=== PATIENT | female | born 1975 | race American Indian/Alaskan Native ===

== ENCOUNTER 2016-09-26 03:35 | Emergency (ER) | payer MEDICAID ==
[2016-09-26 04:50] LABS: Bilirubin,Urine NEG (Negative); Blood,Urine NEG (Negative); Ketones,Urine NEG (Negative); Leukocyte Esterase,Urine NEG (Negative); Mucus,Urine FEW /HPF; Nitrite,Urine NEG (Negative); Protein,Urine <15 mg/dL mg/dL (Negative); Urobilinogen,Urine < 2.0 mg/dL (<2.0)
[2016-09-26 04:55] LABS: Basophils % (Auto) 0.9 % (0.0-1.8); Eosinophils % (Auto) 4.7 % (0.0-4.3); Hematocrit 35.2 % (30.3-42.9); Hemoglobin 10.9 gm/dl (10.1-14.3); Mean Corpuscular HGB Conc 31 % (30-34); Mean Corpuscular Hemoglobin 22 pg (28-32); Mean Corpuscular Volume 70 fl (79-97); Platelet Count 304 K/mm3 (140-440); Red Blood Count 5.01 M/mm3 (3.65-5.03); Red Cell Distribution Width 15.5 % (13.2-15.2); White Blood Count 8.6 K/mm3 (4.5-11.0)
[2016-09-26 05:14] LABS: BUN/Creatinine Ratio 15.71; Blood Urea Nitrogen 11 mg/dL (7-17); Calcium 8.7 mg/dL (8.4-10.2); Carbon Dioxide 23 mmol/L (22-30); Glucose 129 mg/dL (65-100)
[2016-09-26 05:15] LABS: Anion Gap 18 mmol/L; Chloride 101.3 mmol/L (98-107); Potassium 3.6 mmol/L (3.6-5.0); Sodium 139 mmol/L (137-145)
[2016-09-26] MEDS ORDERED: TENORMIN PO ONE (11:59)
[2016-09-26] MEDS ORDERED: ATIVAN PO ONE (11:59)
[2016-09-26] MEDS ORDERED: PROVENTIL IH ONE (11:59)
--- NOTE | 2016-09-26 12:19 | Emergency Department Report ---
ED Chest Pain HPI - General Chief Complaint: Chest Pain Stated Complaint: CHEST PAIN Time Seen by Provider: 09/26/16 11:36 Source: patient Mode of arrival: Ambulatory Limitations: No Limitations - History of Present Illness Initial Comments: 41-year-old female presents to the emergency department complaining of chest pain. Patient states that at approximately midnight she began having tingling in her left arm with associated headache, shortness of breath, and tightness in the center of her chest. Chest pain did not radiate. She denies diaphoresis, dizziness, nausea, or vomiting. She states that she has been out of her blood pressure medication for 3 days. She states that she took her blood pressure at home and noted that it was high. Patient states she began to become actually worried about this and came to the emergency department. At this time, patient reports feeling better. She is now complaining of mild wheezing with a nonproductive cough. There are no other complaints. MD Complaint: chest pain -: Sudden, During the night Time: 00:00 Onset: during rest Pain Location: substernal Pain Radiation: none Severity: mild Severity scale (0 -10): 4 Quality: tightness Consistency: constant, now resolved Improves With: nothing Worsens With: nothing re: dyspnea. denies: nausea, vomting, diaphoresis Treatments Prior to Arrival: none Aspirin use within the Past 7 Days: (0) No - Related Data Previous Rx's Medication Instructions Recorded Last Taken Type Atenolol [Tenormin] 25 mg PO DAILY #30 tab 09/26/16 Unknown Rx LORazepam [Ativan] 0.5 mg PO Q6H PRN #20 tablet 09/26/16 Unknown Rx Allergies Allergy/AdvReac Type Severity Reaction Status Date / Time No Known Allergies Allergy Unverified 02/28/13 17:12 Heart Score - HEART Score History: Slightly suspicious EKG: Normal Age: < 45 Risk factors: 1-2 risk factors Troponin: < normal limit HEART Score: 1 ED Review of Systems ROS: Stated complaint: CHEST PAIN Other details as noted in HPI Comment: All other systems reviewed and negative Respiratory: cough, shortness of breath, wheezing Cardiovascular: chest pain Neurological: headache, paresthesias ED Past Medical Hx - Past Medical History Previous Medical History?: Yes Hx Hypertension: Yes Hx Asthma: Yes Additional medical history: Anxiety - Surgical History Past Surgical History?: Yes Additional Surgical History: tubal ligation - Family History Family history: no significant - Social History Smoking Status: Never Smoker Substance Use Type: None - Medications Home Medications: Home Medications Medication Instructions Recorded Confirmed Last Taken Type Atenolol [Tenormin] 25 mg PO DAILY #30 tab 09/26/16 Unknown Rx LORazepam [Ativan] 0.5 mg PO Q6H PRN #20 tablet 09/26/16 Unknown Rx ED Physical Exam - General Limitations: No Limitations General appearance: alert, in no apparent distress - Head Head exam: Present: atraumatic, normocephalic - Eye Eye exam: Present: normal appearance, PERRL, EOMI - ENT ENT exam: Present: normal exam, normal orophraynx, mucous membranes moist - Neck Neck exam: Present: normal inspection, full ROM. Absent: tenderness - Respiratory Respiratory exam: Present: wheezes (bilateral posterior and expiratory). Absent : respiratory distress, chest wall tenderness - Cardiovascular Cardiovascular Exam: Present: regular rate (heart rate 84 on exam), normal rhythm, normal heart sounds - GI/Abdominal GI/Abdominal exam: Present: soft, normal bowel sounds. Absent: distended, tenderness - Extremities Exam Extremities exam: Present: normal inspection, full ROM. Absent: tenderness - Back Exam Back exam: Present: normal inspection, full ROM. Absent: tenderness - Neurological Exam Neurological exam: Present: alert, oriented X3. Absent: motor sensory deficit - Skin Skin exam: Present: warm, dry, intact ED Course Vital Signs 09/26/16 09/26/16 09/26/16 03:55 11:34 11:40 Temperature 97.7 F Pulse Rate 103 H 80 Respiratory 20 17 Rate Blood Pressure 167/110 166/95 166/95 Blood Pressure [Left] O2 Sat by Pulse 100 100 Oximetry 09/26/16 09/26/16 09/26/16 11:50 12:11 12:23 Temperature 98.7 F Pulse Rate 80 82 Respiratory 23 20 Rate Blood Pressure 164/88 145/87 Blood Pressure 125/76 [Left] O2 Sat by Pulse 99 99 Oximetry LUISA score - Luisa Score Age > 65: (0) No Aspirin use within the Past 7 Days: (0) No 3 or more CAD Risk Factors: (0) No 2 or more Angina events in past 24 hrs: (0) No Known CAD with more than 50% Stenosis: (0) No Elevated Cardiac Markers: (0) No ST Deviation Greater than 0.5mm: (0) No LUISA Score: 0 ED Medical Decision Making - Lab Data Result diagrams: 09/26/16 04:17 09/26/16 04:17 - EKG Data -: EKG Interpreted by Me EKG shows normal: sinus rhythm, axis, intervals, QRS complexes, ST-T waves Rate: tachycardia - EKG Data When compared to previous EKG there are: previous EKG unavailable Interpretation: normal EKG - Medical Decision Making Lab results reviewed and discussed with the patient. Patient reports feeling much better following nebulizer treatment. Her blood pressure has decreased with medication. Patient will be discharged home at this time to follow up with her primary care physician. - Differential Diagnosis atypical chest pain, hypertension, anxiety, asthma exacerbation Critical care attestation.: If time is entered above; I have spent that time in minutes in the direct care of this critically ill patient, excluding procedure time. ED Disposition Clinical Impression: Non-cardiac chest pain, Essential hypertension Disposition: DC- TO HOME OR SELFCARE Is pt being admited?: No Condition: Stable Instructions: Chest Pain (ED), Hypertension (ED) Prescriptions: Atenolol [Tenormin] 25 mg PO DAILY #30 tab LORazepam [Ativan] 0.5 mg PO Q6H PRN #20 tablet PRN Reason: Anxiety Referrals: PRIMARY CARE, [Primary Care Provider] - 3-5 Days Time of Disposition: 13:14
[2016-09-26 14:07] VITALS: BP 142/81
== END 2016-09-26 13:00 | disposition home or self-care (01) ==
LOC: ED 03:35
DX: R07.89 Other chest pain (principal); I10 Essential (primary) hypertension; J45.909 Unspecified asthma, uncomplicated; F41.9 Anxiety disorder, unspecified
CPT/HCPCS: 36415; 80048; 81001; 84484; 84703; 85025; 93005; 93010; 94640

== ENCOUNTER 2017-12-07 13:01 | Emergency (ER) | payer MEDICAID ==
[2017-12-07 13:09] VITALS: BP 154/78
--- NOTE | 2017-12-07 14:36 | Emergency Department Report ---
ED Palpitations HPI - General Chief Complaint: Arrhythmia/Palpitations Stated Complaint: IRREGULAR HEART BEAT Time Seen by Provider: 12/07/17 14:25 Source: patient Mode of arrival: Ambulatory Limitations: No Limitations - History of Present Illness Initial Comments: Patient is 42 years old female with history of asthma and hypertension. Patient presented to the ER stating that she had multiple episodes of heart racing last night. She denied any chest pain, shortness of breath, fever or cough. Patient stated that she had this history before and she was diagnosed as an anxiety. Patient currently denying any symptoms. MD Complaint: rapid heart beat, "heart racing" -: Sudden, Last night Context: occured during rest Associated Symptoms: denies other symptoms - Related Data Previous Rx's Medication Instructions Recorded Last Taken Type Atenolol [Tenormin] 25 mg PO DAILY #30 tab 09/26/16 Unknown Rx LORazepam [Ativan] 0.5 mg PO Q6H PRN #20 tablet 09/26/16 Unknown Rx Allergies Allergy/AdvReac Type Severity Reaction Status Date / Time No Known Allergies Allergy Verified 12/07/17 13:09 ED Review of Systems ROS: Stated complaint: IRREGULAR HEART BEAT Other details as noted in HPI Comment: All other systems reviewed and negative Respiratory: denies: cough, shortness of breath Cardiovascular: palpitations. denies: chest pain Gastrointestinal: denies: abdominal pain, nausea ED Past Medical Hx - Past Medical History Hx Hypertension: Yes Hx Asthma: Yes Additional medical history: Anxiety - Surgical History Additional Surgical History: tubal ligation - Social History Smoking Status: Never Smoker Substance Use Type: Alcohol - Medications Home Medications: Home Medications Medication Instructions Recorded Confirmed Last Taken Type Atenolol [Tenormin] 25 mg PO DAILY #30 tab 09/26/16 Unknown Rx LORazepam [Ativan] 0.5 mg PO Q6H PRN #20 tablet 09/26/16 Unknown Rx ED Physical Exam - General Limitations: No Limitations General appearance: alert, in no apparent distress - Head Head exam: Present: atraumatic, normocephalic, normal inspection - Eye Eye exam: Present: normal appearance - ENT ENT exam: Present: normal exam, normal orophraynx, mucous membranes moist - Neck Neck exam: Present: normal inspection, full ROM. Absent: tenderness, meningismus, lymphadenopathy, thyromegaly - Respiratory Respiratory exam: Present: normal lung sounds bilaterally. Absent: respiratory distress, wheezes, rales, rhonchi, chest wall tenderness, accessory muscle use, decreased breath sounds, prolonged expiratory - Cardiovascular Cardiovascular Exam: Present: regular rate, normal rhythm, normal heart sounds - GI/Abdominal GI/Abdominal exam: Present: soft, normal bowel sounds. Absent: distended, tenderness, guarding, rebound, rigid, organomegaly, mass, bruit, pulsatile mass , hernia - Extremities Exam Extremities exam: Present: normal inspection, full ROM, normal capillary refill - Back Exam Back exam: Present: normal inspection, full ROM. Absent: tenderness, CVA tenderness (R), CVA tenderness (L), muscle spasm, paraspinal tenderness, vertebral tenderness - Neurological Exam Neurological exam: Present: alert, oriented X3, CN II-XII intact, normal gait, reflexes normal - Skin Skin exam: Present: warm, intact, normal color ED Course Vital Signs 12/07/17 13:06 Temperature 99.2 F Pulse Rate 88 Respiratory 15 Rate Blood Pressure 154/78 O2 Sat by Pulse 99 Oximetry ED Medical Decision Making - Lab Data Result diagrams: 12/07/17 15:31 12/07/17 15:31 - EKG Data -: EKG Interpreted by Al EKG shows normal: sinus rhythm Rate: normal - EKG Data Interpretation: no acute changes Critical care attestation.: If time is entered above; I have spent that time in minutes in the direct care of this critically ill patient, excluding procedure time. ED Disposition Clinical Impression: Palpitation Disposition: DC-01 TO HOME OR SELFCARE Is pt being admited?: No Condition: Stable Instructions: Palpitations (ED) Referrals: PRIMARY CARE, [Referring] - 3-5 Days
[2017-12-07 15:50] LABS: Basophils # (Auto) 0.1 K/mm3 (0.0-0.1); Eosinophils # (Auto) 0.3 K/mm3 (0.0-0.4); Hematocrit 36.7 % (30.3-42.9); Hemoglobin 11.5 gm/dl (10.1-14.3); Lymphocytes # (Auto) 2.4 K/mm3 (1.2-5.4); Lymphocytes % (Auto) 37.1 % (13.4-35.0); Mean Corpuscular HGB Conc 31 % (30-34); Mean Corpuscular Volume 72 fl (79-97); Monocytes # (Auto) 0.5 K/mm3 (0.0-0.8); Monocytes % (Auto) 7.3 % (0.0-7.3); Platelet Count 256 K/mm3 (140-440); Red Blood Count 5.12 M/mm3 (3.65-5.03)
[2017-12-07 15:52] LABS: Mean Corpuscular Hemoglobin 23 pg (28-32)
[2017-12-07 15:54] LABS: Bilirubin,Urine NEG (Negative); Blood,Urine NEG (Negative); Color,Urine Yellow (Yellow); Hyaline Casts,Urine 1 /LPF; Mucus,Urine FEW /HPF; WBC,Urine < 1.0 /HPF (0.0-6.0)
[2017-12-07 16:01] LABS: Amphetamine Screen,Urine PRESUMPTIVE NEGATIVE; Benzodiazepines Screen,Urine PRESUMPTIVE NEGATIVE; Cannabinoid Screen,Urine PRESUMPTIVE NEGATIVE; Cocaine Screen,Urine PRESUMPTIVE NEGATIVE; Methadone Screen,Urine PRESUMPTIVE NEGATIVE; Opiate Screen,Urine PRESUMPTIVE NEGATIVE
[2017-12-07 16:08] LABS: Alanine Aminotransferase 21 units/L (7-56); Albumin 4.2 g/dL (3.9-5); BUN/Creatinine Ratio 8; Blood Urea Nitrogen 4 mg/dL (7-17); Calcium 8.9 mg/dL (8.4-10.2); Hemolysis Index 27
== END 2017-12-07 16:44 | disposition home or self-care (01) ==
LOC: ED 13:01
DX: R00.2 Palpitations (principal); I10 Essential (primary) hypertension; J45.909 Unspecified asthma, uncomplicated; F41.9 Anxiety disorder, unspecified; Z98.51 Tubal ligation status
CPT/HCPCS: 36415; 80053; 80307; 81001; 84443; 84484; 85025; 93005; 93010; 99283

== ENCOUNTER 2018-06-06 15:52 | Emergency (ER) | payer MEDICAID ==
[2018-06-06 16:02] VITALS: BP 136/77
--- NOTE | 2018-06-06 17:58 | Emergency Department Report ---
Blank Doc - Documentation Documentation: This is a 43 y.o. female that presents with dizziness and palpitations since y . Patient reports rapid palpitations that are intermittent and the room feel like its spinning. PMH of anxiety, sleep apnea, asthma, and HTN. Ordered: labs and EKG Fast track for further evaluation.
[2018-06-06 18:37] LABS: Basophils # (Auto) 0.1 K/mm3 (0.0-0.1); Eosinophils # (Auto) 0.4 K/mm3 (0.0-0.4); Eosinophils % (Auto) 4.5 % (0.0-4.3); Hematocrit 37.2 % (30.3-42.9); Hemoglobin 11.9 gm/dl (10.1-14.3); Lymphocytes # (Auto) 2.4 K/mm3 (1.2-5.4); Lymphocytes % (Auto) 30.7 % (13.4-35.0); Mean Corpuscular HGB Conc 32 % (30-34); Mean Corpuscular Volume 72 fl (79-97); Monocytes # (Auto) 0.3 K/mm3 (0.0-0.8); Monocytes % (Auto) 4.4 % (0.0-7.3); Platelet Count 309 K/mm3 (140-440); Red Blood Count 5.18 M/mm3 (3.65-5.03); Red Cell Distribution Width 15.2 % (13.2-15.2)
[2018-06-06 18:54] LABS: Alanine Aminotransferase 15 units/L (7-56); Albumin 4.3 g/dL (3.9-5); BUN/Creatinine Ratio 14; Blood Urea Nitrogen 7 mg/dL (7-17); Calcium 9.1 mg/dL (8.4-10.2); Hemolysis Index 5
[2018-06-06 20:28] LABS: Bilirubin,Urine NEG (Negative); Blood,Urine MOD (Negative); Color,Urine Yellow (Yellow); Mucus,Urine FEW /HPF; Protein,Urine <15 mg/dL mg/dL (Negative); Urobilinogen,Urine < 2.0 mg/dL (<2.0)
--- NOTE | 2018-06-06 20:53 | Emergency Department Report ---
<CECI GARCIA - Last Filed: 06/06/18 21:48> ED Dizziness HPI - General Chief Complaint: Dizziness Stated Complaint: DIZZY/RAPID HEART RATE Time Seen by Provider: 06/06/18 17:54 Source: patient Mode of arrival: Ambulatory Limitations: No Limitations - History of Present Illness Initial Comments: This is a 43 y.o. female with hx of asthma, and HTN. that presents with dizziness and palpitations since yesterday. Patient reports rapid palpitations that are intermittent and the room feel like its spinning. PMH of anxiety, sleep apnea, MD Complaint: dizziness Onset/Timin -: days(s) Timing: gradual onset Description: "room spinning" History of Same: Yes History of Trauma: No Severity: moderate Improves With: rest Worsens With: movement, position Associated Symptoms: other (palpitation anxiety ). denies: chest pain, confusion, cough, diaphoresis, fever/chills, malaise, seizure, shortness of breath, syncope, weakness - Related Data Previous Rx's Medication Instructions Recorded Last Taken Type LORazepam [Ativan] 0.5 mg PO Q6H PRN #20 tablet 09/26/16 Unknown Rx RX: Atenolol [Tenormin] 25 mg PO DAILY #30 tab 09/26/16 Unknown Rx Nitrofurantoin Monohyd/M-Cryst 100 mg PO BID 7 Days #14 capsule 06/06/18 Unknown Rx [Macrobid 100 mg Capsule] RX: Ibuprofen 800 mg PO TID PRN #30 tablet 06/06/18 Unknown Rx diphenhydrAMINE [Benadryl CAP] 25 mg PO Q8HR PRN #30 capsule 06/06/18 Unknown Rx Allergies Allergy/AdvReac Type Severity Reaction Status Date / Time No Known Allergies Allergy Verified 06/06/18 15:55 ED Review of Systems Constitutional: denies: chills, fever Eyes: denies: eye pain, eye discharge, vision change ENT: denies: ear pain, throat pain Cardiovascular: palpitations. denies: dyspnea on exertion, edema, syncope, paroxysmal nocturnal dyspnea Endocrine: no symptoms reported. denies: excessive sweating, flushing Gastrointestinal: denies: abdominal pain, nausea, vomiting, diarrhea, hematemesis Genitourinary: frequency. denies: urgency, dysuria, hematuria, discharge, abnormal menses, dyspareunia Musculoskeletal: denies: back pain, joint swelling, arthralgia, myalgia Skin: denies: rash, lesions Neurological: denies: headache, weakness, numbness, paresthesias, confusion, abnormal gait, vertigo Psychiatric: as per HPI, anxiety Hematological/Lymphatic: denies: easy bleeding, easy bruising ED Past Medical Hx - Past Medical History Previous Medical History?: Yes Hx Hypertension: Yes Hx Asthma: Yes Additional medical history: Anxiety - Surgical History Past Surgical History?: Yes Hx Breast Surgery: (breast reduction) Additional Surgical History: tubal ligation - Social History Smoking Status: Never Smoker Substance Use Type: Alcohol - Medications Home Medications: Home Medications Medication Instructions Recorded Confirmed Last Taken Type LORazepam [Ativan] 0.5 mg PO Q6H PRN #20 tablet 09/26/16 Unknown Rx RX: Atenolol [Tenormin] 25 mg PO DAILY #30 tab 09/26/16 Unknown Rx Nitrofurantoin Monohyd/M-Cryst 100 mg PO BID 7 Days #14 capsule 06/06/18 Unknown Rx [Macrobid 100 mg Capsule] RX: Ibuprofen 800 mg PO TID PRN #30 tablet 06/06/18 Unknown Rx diphenhydrAMINE [Benadryl CAP] 25 mg PO Q8HR PRN #30 capsule 06/06/18 Unknown Rx ED Physical Exam - General Limitations: No Limitations General appearance: alert, in no apparent distress - Head Head exam: Present: atraumatic, normocephalic - Eye Eye exam: Present: normal appearance, PERRL, EOMI Pupils: Present: normal accommodation - ENT ENT exam: Present: mucous membranes moist, TM's normal bilaterally, normal external ear exam - Expanded ENT Exam Expanded Ear exam: Present: normal external inspection Mouth exam: Absent: trismus Throat exam: Positive: tonsillar erythema, other (uvula midline no exudate no lesion no stridor no wheezing ). Negative: tonsillomegaly, tonsillar exudate, R peritonsillar mass, L peritonsillar mass - Neck Neck exam: Present: normal inspection, full ROM. Absent: tenderness, meningismus, lymphadenopathy, thyromegaly - Expanded Neck Exam Expanded Neck exam: Absent: tenderness, midline deformity, anterior neck swelling, thyroid mass, carotid bruit, tracheal deviation - Respiratory Respiratory exam: Present: normal lung sounds bilaterally. Absent: respiratory distress, wheezes, stridor, chest wall tenderness - Cardiovascular Cardiovascular Exam: Present: regular rate, normal rhythm, normal heart sounds. Absent: systolic murmur, diastolic murmur, rubs, gallop - GI/Abdominal GI/Abdominal exam: Present: soft, normal bowel sounds. Absent: tenderness, bruit, hernia - Rectal Rectal exam: Present: deferred - External exam: Present: other (exam deferred ) - Extremities Exam Extremities exam: Present: normal inspection, full ROM, normal capillary refill. Absent: tenderness, pedal edema, joint swelling, calf tenderness - Back Exam Back exam: Present: normal inspection, full ROM. Absent: tenderness, CVA tenderness (R), CVA tenderness (L), muscle spasm, paraspinal tenderness, vertebral tenderness, rash noted - Neurological Exam Neurological exam: Present: alert, oriented X3, CN II-XII intact, normal gait, reflexes normal - Expanded Neurological Exam Expanded Neurological exam: Absent: ataxia, tremor Patient oriented to: Present: person, place Speech: Present: fluid speech Cranial nerves: EOM's Intact: Normal, Gag Reflex: Normal, Tongue Deviation: Normal, Nystagmus: Normal, Facial Sensation: Normal Cerebellar function: Finger to Nose: Normal, Heel to [place]: Normal, Romberg: Normal Upper motor neuron: [place] Neglect: Normal, Pronator Drift: Normal, Babinski Sign: Normal, Sensory Extinction: Normal Sensory exam: Upper Extremity Light Touch: Normal, Upper Extremity Pin Prick: Normal, Upper Extremity Temperature: Normal, UE 2 Point Discrimination: Normal, Lower Extremity Light Touch: Normal, Lower Extremity Pin Prick: Normal, Lower Extremity Temperature: Normal, LE 2 Point Discrimination: Normal Motor strength exam: RUE: 5, LUE: 5, RLE: 5, LLE: 5 Best Eye Response ([place]): (4) open spontaneously Best Motor Response ([place]): (6) obeys commands Best Verbal Response (Damaris): (5) oriented Damaris Total: 15 - Psychiatric Psychiatric exam: Present: normal affect, normal mood - Skin Skin exam: Present: warm, dry, intact, normal color. Absent: rash ED Medical Decision Making - Lab Data Result diagrams: 06/06/18 18:07 06/06/18 18:07 Labs 06/06/18 06/06/18 06/06/18 18:07 18:07 18:07 WBC 7.8 RBC 5.18 H Hgb 11.9 Hct 37.2 MCV 72 L MCH 23 L MCHC 32 RDW 15.2 Plt Count 309 Lymph % (Auto) 30.7 [place]olls % (Auto) 4.4 Eos % (Auto) 4.5 H Baso % (Auto) 1.0 Lymph # 2.4 [place]s # 0.3 Eos # 0.4 Baso # 0.1 Seg Neutrophils % 59.4 Seg Neutrophils # 4.6 Sodium 138 Potassium 3.8 Chloride 100.3 Carbon Dioxide 27 Anion Gap 15 BUN 7 Creatinine 0.5 L Estimated GFR > 60 BUN/Creatinine Ratio 14 Glucose 102 H Calcium 9.1 Total Bilirubin 0.60 AST 13 ALT 15 Alkaline Phosphatase 73 Troponin T < 0.010 Total Protein 7.4 Albumin 4.3 Albumin/Globulin Ratio 1.4 TSH 1.250 Urine Color Urine Turbidity Urine pH Ur Specific [place] Urine Protein Urine Glucose (UA) Urine Ketones Urine Blood Urine Nitrite Urine Bilirubin Urine Urobilinogen Ur Leukocyte Esterase Urine WBC (Auto) Urine RBC (Auto) U Epithel Cells (Auto) Urine Mucus 06/06/18 19:55 WBC RBC Hgb Hct MCV MCH MCHC RDW Plt Count Lymph % (Auto) [place] % (Auto) Eos % (Auto) Baso % (Auto) Lymph # [place] # Eos # Baso # Seg Neutrophils % Seg Neutrophils # Sodium Potassium Chloride Carbon Dioxide Anion Gap BUN Creatinine Estimated GFR BUN/Creatinine Ratio Glucose Calcium Total Bilirubin AST ALT Alkaline Phosphatase Troponin T Total Protein Albumin Albumin/Globulin Ratio TSH Urine Color Yellow Urine Turbidity Clear Urine pH 5.0 Ur Specific [place] 1.013 Urine Protein <15 mg/dl Urine Glucose (UA) Neg Urine Ketones Neg Urine Blood Mod Urine Nitrite Neg Urine Bilirubin Neg Urine Urobilinogen < 2.0 Ur Leukocyte Esterase Neg Urine WBC (Auto) 7.0 H Urine RBC (Auto) 2.0 U Epithel Cells (Auto) 2.0 Urine Mucus Few - EKG Data EKG shows normal: sinus rhythm Rate: normal - EKG Data When compared to previous EKG there are: previous EKG unavailable Interpretation: normal EKG (ekg interp ed attending no st elevation , ectopy , Normal EKG ) - Radiology Data Radiology results: report reviewed, image reviewed FINAL REPORT PROCEDURE: XR CHEST ROUTINE 2V TECHNIQUE: PA and lateral chest radiographs were obtained. CPT 98310 HISTORY: palpitations COMPARISON: No prior studies are available for comparison. FINDINGS: Heart: Normal. Mediastinum/Vessels: Normal. Lungs/Pleural space: Normal. Bony thorax: No acute osseous abnormality. Other: IMPRESSION: Normal examination. Transcribed By: [facility] Dictated By: DINA LIPSCOMB Electronically Authenticated By: DINA LIPSCOMB Signed Date/Time: 06/06/182112 DD/ 11 TD/TT: 06/06/182111 - Medical Decision Making CXR: normal no infiltrate no opacities, EKG NSR , Heartscore is 1, for hx of HTN, CXR: normal , EKG: NSR no ST Elevation ENT: mild head congestion clear post nasal drip, ears TMs, clear no sinus pain or swelling , no fever or chills, UA: po for blood, and WBC , Last menses 3 days ago, pt denies vaginal discharge, there is no dizziness or light headedness at this time, pt is ambulatory with steady gait at this time. plan : continue htn medication as scheduled, rx for benadryl prn dizziness, macrobid for urinary frequency, pt will follow up with with her pcp in 2-3 days and return to ed if symptoms worsen, pt verbalized agreement and understanding and agreement with discharge plan. ED Disposition Clinical Impression: Urinary frequency, General medical examination Disposition: TO HOME OR SELFCARE Is pt being admited?: No Does the pt Need Aspirin: No Condition: Good Instructions: Dysuria (ED), Anxiety (ED) Prescriptions: diphenhydrAMINE [Benadryl CAP] 25 mg PO Q8HR PRN #30 capsule PRN Reason: dizziness RX: Ibuprofen 800 mg PO TID PRN #30 tablet PRN Reason: pain Nitrofurantoin Monohyd/M-Cryst [Macrobid 100 mg Capsule] 100 mg PO BID 7 Days #14 capsule Referrals: LAURI GARCIA MD [Primary Care Provider] - 3-5 Days [facility] [Outside] - 3-5 Days Forms: Work/School Release Form(ED) Time of Disposition: 22:13 <JADYN MILAN - Last Filed: 06/07/18 01:57> ED Review of Systems ROS: Stated complaint: DIZZY/RAPID HEART RATE Other details as noted in HPI ED Course Vital Signs 06/06/18 06/06/18 16:01 22:35 Temperature 97.9 F Pulse Rate 92 H 69 Respiratory 15 16 Rate Blood Pressure 136/77 [Right] O2 Sat by Pulse 100 100 Oximetry ED Medical Decision Making - Lab Data Result diagrams: 06/06/18 18:07 06/06/18 18:07 Critical care attestation.: If time is entered above; I have spent that time in minutes in the direct care of this critically ill patient, excluding procedure time. ED Disposition Is pt being admited?: No Does the pt Need Aspirin: No
--- NOTE | 2018-06-06 21:13 | XRay Report ---
FINAL REPORT PROCEDURE: XR CHEST ROUTINE 2V TECHNIQUE: PA and lateral chest radiographs were obtained. CPT 56162 HISTORY: palpitations COMPARISON: No prior studies are available for comparison. FINDINGS: Heart: Normal. Mediastinum/Vessels: Normal. Lungs/Pleural space: Normal. Bony thorax: No acute osseous abnormality. Other: IMPRESSION: Normal examination.
== END 2018-06-06 22:35 | disposition home or self-care (01) ==
LOC: ED 15:52
DX: R35.0 Frequency of micturition (principal); I10 Essential (primary) hypertension; J45.909 Unspecified asthma, uncomplicated; F41.9 Anxiety disorder, unspecified; Z98.51 Tubal ligation status
CPT/HCPCS: 36415; 71046; 80053; 81001; 84443; 84484; 85025; 93005; 93010; 99284

== ENCOUNTER 2018-08-21 06:35 | Emergency (ER) | payer MEDICAID ==
[2018-08-21] MEDS ORDERED: DUONEB *Not for PRN Use IH ONE (07:33)
[2018-08-21] MEDS ORDERED: SOLU-Medrol IV ONE (07:35)
--- NOTE | 2018-08-21 07:38 | Emergency Department Report ---
ED General Adult HPI - General Chief complaint: Dyspnea/Respdistress Stated complaint: LEXI Time Seen by Provider: 08/21/18 07:22 Source: patient, EMS Mode of arrival: Stretcher Limitations: No Limitations - History of Present Illness Initial comments: This is a 43-year-old female and has a history of asthma. She uses Symbicort and albuterol. He states he's been using her inhaler frequently while in 10 times a day. She reports that her heart is racing and does related to her overuse of her inhaler. She states she has recently been to her primary care physician. She is not currently taking steroids. She does describe some vague chest discomfort which does not radiate. It is not pleuritic. She has not been coughing. No fever or chills. He uses CPAP at night. -: Gradual, days(s) Radiation: non-radiation Quality: other (some tightness associated with wheezing) Consistency: intermittent Improves with: none Worsens with: other (wheezing) Associated Symptoms: denies other symptoms, other (heart racing gradual palpitations) Treatments Prior to Arrival: none - Related Data Previous Rx's Medication Instructions Recorded Last Taken Type Atenolol [Tenormin] 25 mg PO DAILY #30 tab 09/26/16 Unknown Rx LORazepam [Ativan] 0.5 mg PO Q6H PRN #20 tablet 09/26/16 Unknown Rx Ibuprofen 800 mg PO TID PRN #30 tablet 06/06/18 Unknown Rx Nitrofurantoin Monohyd/M-Cryst 100 mg PO BID 7 Days #14 capsule 06/06/18 Unknown Rx [Macrobid 100 mg Capsule] diphenhydrAMINE [Benadryl CAP] 25 mg PO Q8HR PRN #30 capsule 06/06/18 Unknown Rx predniSONE [Deltasone] 40 mg PO QDAY #14 tab 08/21/18 Unknown Rx Allergies Allergy/AdvReac Type Severity Reaction Status Date / Time No Known Allergies Allergy Verified 06/06/18 15:55 ED Review of Systems ROS: Stated complaint: LEXI Other details as noted in HPI Constitutional: denies: chills, fever Eyes: denies: eye pain, eye discharge, vision change ENT: denies: ear pain, throat pain Respiratory: shortness of breath, wheezing. denies: cough Cardiovascular: chest pain, palpitations Endocrine: no symptoms reported Gastrointestinal: denies: abdominal pain, nausea, diarrhea Genitourinary: denies: urgency, dysuria, discharge Musculoskeletal: denies: back pain, joint swelling, arthralgia Skin: denies: rash, lesions Neurological: denies: headache, weakness, paresthesias Psychiatric: denies: anxiety, depression Hematological/Lymphatic: denies: easy bleeding, easy bruising ED Past Medical Hx - Past Medical History Previous Medical History?: Yes Hx Hypertension: Yes Hx Asthma: Yes Additional medical history: Anxiety, Sleep Apnea - Surgical History Past Surgical History?: Yes Hx Breast Surgery: (breast reduction) Additional Surgical History: tubal ligation - Social History Smoking Status: Former Smoker Substance Use Type: Alcohol - Medications Home Medications: Home Medications Medication Instructions Recorded Confirmed Last Taken Type Atenolol [Tenormin] 25 mg PO DAILY #30 tab 09/26/16 Unknown Rx LORazepam [Ativan] 0.5 mg PO Q6H PRN #20 tablet 09/26/16 Unknown Rx Ibuprofen 800 mg PO TID PRN #30 tablet 06/06/18 Unknown Rx Nitrofurantoin Monohyd/M-Cryst 100 mg PO BID 7 Days #14 capsule 06/06/18 Unknown Rx [Macrobid 100 mg Capsule] diphenhydrAMINE [Benadryl CAP] 25 mg PO Q8HR PRN #30 capsule 06/06/18 Unknown Rx predniSONE [Deltasone] 40 mg PO QDAY #14 tab 08/21/18 Unknown Rx ED Physical Exam - General Limitations: No Limitations General appearance: alert, in no apparent distress - Head Head exam: Present: atraumatic, normocephalic - Eye Eye exam: Present: normal appearance. Absent: scleral icterus - ENT ENT exam: Present: mucous membranes moist - Neck Neck exam: Present: normal inspection. Absent: tenderness, meningismus - Respiratory Respiratory exam: Present: wheezes (mild end expiratory wheeze). Absent: respiratory distress - Cardiovascular Cardiovascular Exam: Present: regular rate, normal rhythm. Absent: systolic mu rmur, diastolic murmur, rubs, gallop - GI/Abdominal GI/Abdominal exam: Present: soft, normal bowel sounds. Absent: distended, tenderness, guarding, rebound, rigid - Extremities Exam Extremities exam: Present: normal inspection - Back Exam Back exam: Present: normal inspection - Neurological Exam Neurological exam: Present: alert, oriented X3, CN II-XII intact. Absent: motor sensory deficit - Psychiatric Psychiatric exam: Present: normal affect, normal mood - Skin Skin exam: Present: warm, dry, intact, normal color. Absent: rash ED Course Vital Signs 08/21/18 07:00 Temperature 98.6 F Pulse Rate 104 H Respiratory 16 Rate Blood Pressure 145/80 O2 Sat by Pulse 98 Oximetry - Reevaluation(s) Reevaluation #1: No palpitations, monitoring. Wheezes improved. Breath sounds are clear. Patient desires discharge. No complaints of chest discomfort. 08/21/18 09:24 ED Medical Decision Making - Lab Data Result diagrams: 08/21/18 07:31 08/21/18 07:31 Laboratory Results - last 24 hr 08/21/18 08/21/18 08/21/18 07:31 07:35 07:35 WBC 10.0 RBC 5.00 Hgb 11.5 Hct 35.6 MCV 71 L MCH 23 L MCHC 32 RDW 14.4 Plt Count 264 Lymph % (Auto) 19.7 Gilliam % (Auto) 6.2 Eos % (Auto) 3.7 Baso % (Auto) 0.7 Lymph # 2.0 Gilliam # 0.6 Eos # 0.4 Baso # 0.1 Seg Neutrophils % 69.7 Seg Neutrophils # 7.0 PT 12.7 INR 0.90 APTT 24.7 D-Dimer 200.99 TSH 2.150 Free T4 1.02 HCG, Qual 08/21/18 07:35 WBC RBC Hgb Hct MCV MCH MCHC RDW Plt Count Lymph % (Auto) Gilliam % (Auto) Eos % (Auto) Baso % (Auto) Lymph # Gilliam # Eos # Baso # Seg Neutrophils % Seg Neutrophils # PT INR APTT D-Dimer TSH Free T4 HCG, Qual Negative Laboratory Results - last 24 hr 08/21/18 08/21/18 08/21/18 07:31 07:31 07:35 WBC 10.0 RBC 5.00 Hgb 11.5 Hct 35.6 MCV 71 L MCH 23 L MCHC 32 RDW 14.4 Plt Count 264 Lymph % (Auto) 19.7 Gilliam % (Auto) 6.2 Eos % (Auto) 3.7 Baso % (Auto) 0.7 Lymph # 2.0 Gilliam # 0.6 Eos # 0.4 Baso # 0.1 Seg Neutrophils % 69.7 Seg Neutrophils # 7.0 PT 12.7 INR 0.90 APTT 24.7 D-Dimer 200.99 Sodium 139 Potassium 4.1 Chloride 103.3 Carbon Dioxide 22 Anion Gap 18 BUN 11 Creatinine 0.7 Estimated GFR > 60 BUN/Creatinine Ratio 16 Glucose 143 H Calcium 9.1 Magnesium Total Bilirubin Direct Bilirubin Indirect Bilirubin AST ALT Alkaline Phosphatase Total Creatine Kinase CK-MB (CK-2) CK-MB (CK-2) Rel Index NT-Pro-B Natriuret Pep Total Protein Albumin Albumin/Globulin Ratio TSH Free T4 HCG, Qual 08/21/18 08/21/18 08/21/18 07:35 07:35 07:35 WBC RBC Hgb Hct MCV MCH MCHC RDW Plt Count Lymph % (Auto) Gilliam % (Auto) Eos % (Auto) Baso % (Auto) Lymph # Gilliam # Eos # Baso # Seg Neutrophils % Seg Neutrophils # PT INR APTT D-Dimer Sodium Potassium Chloride Carbon Dioxide Anion Gap BUN Creatinine Estimated GFR BUN/Creatinine Ratio Glucose Calcium Magnesium 1.90 Total Bilirubin 0.50 Direct Bilirubin < 0.2 Indirect Bilirubin 0.3 AST 17 ALT 20 Alkaline Phosphatase 70 Total Creatine Kinase 120 CK-MB (CK-2) 1.0 CK-MB (CK-2) Rel Index 0.8 NT-Pro-B Natriuret Pep < 5 Total Protein 7.4 Albumin 4.3 Albumin/Globulin Ratio 1.4 TSH 2.150 Free T4 1.02 HCG, Qual Negative - Radiology Data Radiology results: report reviewed Critical care attestation.: If time is entered above; I have spent that time in minutes in the direct care of this critically ill patient, excluding procedure time. ED Disposition Clinical Impression: Palpitations, Atypical chest pain, Hyperglycemia Exacerbation of asthma Qualifiers: Asthma severity: moderate Asthma persistence: unspecified Qualified Code(s): J45.901 - Unspecified asthma with (acute) exacerbation Disposition: OP ADMIT IP TO THIS HOSP Is pt being admited?: No Does the pt Need Aspirin: No Condition: Stable Instructions: Chest Pain (ED) Additional Instructions: Your sugar was a bit elevated. Prednisone may make that go up somewhat so it should be monitored. Follow-up with your primary care physician. Try not to overuse her inhalers. Return as needed any acute change or recurrent symptoms. Prescriptions: predniSONE [Deltasone] 40 mg PO QDAY #14 tab Referrals: DELILAH VICK MD [Primary Care Provider] - 3-5 Days usual, primary care [Other] - 3-5 Days Time of Disposition: 09:26
[2018-08-21 07:52] LABS: Basophils # (Auto) 0.1 K/mm3 (0.0-0.1); Basophils % (Auto) 0.7 % (0.0-1.8); Eosinophils # (Auto) 0.4 K/mm3 (0.0-0.4); Eosinophils % (Auto) 3.7 % (0.0-4.3); Hematocrit 35.6 % (30.3-42.9); Hemoglobin 11.5 gm/dl (10.1-14.3); Lymphocytes % (Auto) 19.7 % (13.4-35.0); Mean Corpuscular HGB Conc 32 % (30-34); Mean Corpuscular Volume 71 fl (79-97); Monocytes # (Auto) 0.6 K/mm3 (0.0-0.8); Monocytes % (Auto) 6.2 % (0.0-7.3); Platelet Count 264 K/mm3 (140-440); Red Cell Distribution Width 14.4 % (13.2-15.2)
[2018-08-21 08:05] LABS: INR 0.9 (0.87-1.13)
[2018-08-21 08:06] LABS: Partial Thromboplastin Time 24.7 Sec. (24.2-36.6)
[2018-08-21 08:23] LABS: Free T4 (Free Thyroxine) 1.02 ng/dL (0.76-1.46)
[2018-08-21 08:33] LABS: BUN/Creatinine Ratio 16; Blood Urea Nitrogen 11 mg/dL (7-17); Calcium 9.1 mg/dL (8.4-10.2); Hemolysis Index 8
[2018-08-21 08:35] LABS: Alanine Aminotransferase 20 units/L (7-56); Albumin 4.3 g/dL (3.9-5)
[2018-08-21 08:38] LABS: Bilirubin,Direct < 0.2 mg/dL (0-0.2)
--- NOTE | 2018-08-21 08:45 | XRay Report ---
AP CHEST: HISTORY: Chest pain, difficulty in breathing AP view of the chest demonstrates a normal mediastinal and cardiac contour with clear lungs and normal bony and soft tissue structures. No change since 06/06/18. IMPRESSION: Unremarkable AP chest.
[2018-08-21 09:41] VITALS: BP 148/90
== END 2018-08-21 09:41 | disposition admitted as inpatient to this hospital (09) ==
LOC: ED 06:35
DX: J45.901 Unspecified asthma with (acute) exacerbation (principal); I10 Essential (primary) hypertension; G47.30 Sleep apnea, unspecified; R73.9 Hyperglycemia, unspecified; Z98.51 Tubal ligation status; Z87.891 Personal history of nicotine dependence
CPT/HCPCS: 36415; 71045; 80048; 80076; 82550; 82553; 83735; 83880; 84439; 84443; 84703; 85025; 85379; 85610; 85730; 93005; 93010; 94640; 96374; 99285; J2930

== ENCOUNTER 2018-08-29 03:07 | Inpatient (IN) | payer MEDICAID ==
[2018-08-29] MEDS ORDERED: ASPIRIN PO ONE (03:13)
[2018-08-29 04:01] LABS: Hematocrit 39.8 % (30.3-42.9); Hemoglobin 12.5 gm/dl (10.1-14.3); Mean Corpuscular HGB Conc 31 % (30-34); Mean Corpuscular Volume 72 fl (79-97); Platelet Count 305 K/mm3 (140-440); Red Blood Count 5.52 M/mm3 (3.65-5.03); Red Cell Distribution Width 14.6 % (13.2-15.2)
--- NOTE | 2018-08-29 04:05 | XRay Report ---
PROCEDURE: XR CHEST 1V AP TECHNIQUE: Chest radiograph single view. HISTORY: Chest Pain COMPARISONS: None . FINDINGS: No infiltrate, pleural effusion, or pneumothorax seen. The cardiomediastinal silhouette is normal. IMPRESSION: No acute cardiopulmonary abnormality. This document is electronically signed by Elpidio Smiley MD., Aug 29 2018 04:03:03 AM ET
[2018-08-29 04:24] LABS: BUN/Creatinine Ratio 10; Blood Urea Nitrogen 8 mg/dL (7-17); Calcium 9.2 mg/dL (8.4-10.2); Hemolysis Index 13
[2018-08-29 05:21] LABS: Basophils % (Manual) 0 % (0.0-1.8); Total Cells Counted 100
[2018-08-29 05:22] LABS: Platelet Estimate Consistent w Auto
[2018-08-29] MEDS ORDERED: ASPIRIN ONE (06:20)
--- NOTE | 2018-08-29 06:24 | Emergency Department Report ---
ED Chest Pain HPI - General Chief Complaint: Arrhythmia/Palpitations Stated Complaint: HEART PALPITATIONS Time Seen by Provider: 08/29/18 06:22 Source: patient Mode of arrival: Ambulatory Limitations: No Limitations - History of Present Illness Initial Comments: This is a 43-year-old female that I saw her approximately 1 week ago for asthma exacerbation. Patient now states that she has chest heaviness intermittently for the last 3 days. She also complains of palpitations. She had any near- syncope. She states that she had shortness of breath related to her asthma but not specifically associated with her chest discomfort. She also states that she has some chest wall soreness after I noted some grimacing on change in her range of motion. She states the chest heaviness is different than that. She does not smoke. Does not have any apparent family history of premature coronary artery disease. She states she had a stress test in 2016. She is comfortable without chest pain at time of my encounter. MD Complaint: chest pain -: Gradual, days(s) Onset: during rest Pain Location: substernal Pain Radiation: none Severity: moderate Quality: heaviness Consistency: intermittent Improves With: nothing Worsens With: nothing re: nausea (sometimes with nausea). denies: vomting, diaphoresis Other Symptoms: denies: cough, fever, syncope Treatments Prior to Arrival: none Aspirin use within the Past 7 Days: (0) No - Related Data On Oral Contraceptives: No Previous Rx's Medication Instructions Recorded Last Taken Type Atenolol [Tenormin] 25 mg PO DAILY #30 tab 09/26/16 Unknown Rx LORazepam [Ativan] 0.5 mg PO Q6H PRN #20 tablet 09/26/16 Unknown Rx Ibuprofen [Ibuprofen 800] 800 mg PO TID PRN #30 tablet 06/06/18 Unknown Rx Nitrofurantoin Monohyd/M-Cryst 100 mg PO BID 7 Days #14 capsule 06/06/18 Unknown Rx [Macrobid 100 mg Capsule] diphenhydrAMINE [Benadryl CAP] 25 mg PO Q8HR PRN #30 capsule 06/06/18 Unknown Rx predniSONE [Deltasone] 40 mg PO QDAY #14 tab 08/21/18 Unknown Rx Allergies Allergy/AdvReac Type Severity Reaction Status Date / Time No Known Allergies Allergy Verified 06/06/18 15:55 Heart Score - HEART Score History: Slightly suspicious EKG: Non-specific Age: 45-65 Risk factors: No known risk factors Troponin: < normal limit HEART Score: 2 - Critical Actions Critical Actions: 0-3 pts:0.9-1.7%risk of adverse cardiac event.Candidate for discharge ED Review of Systems ROS: Stated complaint: HEART PALPITATIONS Other details as noted in HPI Constitutional: denies: chills, fever Eyes: denies: eye pain, eye discharge, vision change ENT: denies: ear pain, throat pain Respiratory: wheezing. denies: cough, shortness of breath Cardiovascular: chest pain, palpitations Endocrine: no symptoms reported Gastrointestinal: denies: abdominal pain, nausea, diarrhea Genitourinary: denies: urgency, dysuria, discharge Musculoskeletal: denies: back pain, joint swelling, arthralgia Skin: denies: rash, lesions Neurological: denies: headache, weakness, paresthesias Psychiatric: denies: anxiety, depression Hematological/Lymphatic: denies: easy bleeding, easy bruising ED Past Medical Hx - Past Medical History Previous Medical History?: Yes Hx Hypertension: Yes Hx Asthma: Yes Additional medical history: Anxiety, Sleep Apnea - Surgical History Past Surgical History?: Yes Hx Breast Surgery: (breast reduction) Additional Surgical History: tubal ligation - Social History Smoking Status: Never Smoker Substance Use Type: Alcohol - Medications Home Medications: Home Medications Medication Instructions Recorded Confirmed Last Taken Type Atenolol [Tenormin] 25 mg PO DAILY #30 tab 09/26/16 Unknown Rx LORazepam [Ativan] 0.5 mg PO Q6H PRN #20 tablet 09/26/16 Unknown Rx Ibuprofen [Ibuprofen 800] 800 mg PO TID PRN #30 tablet 06/06/18 Unknown Rx Nitrofurantoin Monohyd/M-Cryst 100 mg PO BID 7 Days #14 capsule 06/06/18 Unknown Rx [Macrobid 100 mg Capsule] diphenhydrAMINE [Benadryl CAP] 25 mg PO Q8HR PRN #30 capsule 06/06/18 Unknown Rx predniSONE [Deltasone] 40 mg PO QDAY #14 tab 08/21/18 Unknown Rx ED Physical Exam - General Limitations: No Limitations General appearance: alert, in no apparent distress - Head Head exam: Present: atraumatic, normocephalic - Eye Eye exam: Present: normal appearance. Absent: scleral icterus - ENT ENT exam: Present: mucous membranes moist - Neck Neck exam: Present: normal inspection - Respiratory Respiratory exam: Present: normal lung sounds bilaterally, chest wall t enderness. Absent: respiratory distress - Cardiovascular Cardiovascular Exam: Present: regular rate, normal rhythm. Absent: systolic murmur, diastolic murmur, rubs, gallop - GI/Abdominal GI/Abdominal exam: Present: soft, normal bowel sounds. Absent: distended, tenderness, guarding, rebound - Extremities Exam Extremities exam: Present: normal inspection - Back Exam Back exam: Present: normal inspection - Neurological Exam Neurological exam: Present: alert, oriented X3, CN II-XII intact. Absent: motor sensory deficit - Psychiatric Psychiatric exam: Present: normal affect, normal mood - Skin Skin exam: Present: warm, dry, intact, normal color. Absent: rash ED Course Vital Signs 08/29/18 08/29/18 08/29/18 03:08 03:12 04:10 Temperature 97.9 F 97.9 F Pulse Rate 130 H 138 H 137 H Respiratory 20 18 22 Rate Blood Pressure 187/104 187/104 173/109 Blood Pressure [Right] O2 Sat by Pulse 100 100 Oximetry 08/29/18 08/29/18 08/29/18 04:45 04:57 05:00 Temperature 98.0 F Pulse Rate 121 H 98 H 98 H Respiratory 18 18 Rate Blood Pressure 115/76 Blood Pressure 148/72 [Right] O2 Sat by Pulse 100 100 Oximetry 08/29/18 08/29/18 08/29/18 05:01 06:00 07:00 Temperature Pulse Rate 84 81 Respiratory 18 15 19 Rate Blood Pressure 126/88 112/67 Blood Pressure [Right] O2 Sat by Pulse 100 100 Oximetry - Reevaluation(s) Reevaluation #1: Remained stable. Patient admitted by Dr. Velasquez for further care and evaluation. 08/29/18 08:43 ROBERT score - Robert Score Age > 65: (0) No Aspirin use within the Past 7 Days: (0) No 3 or more CAD Risk Factors: (0) No 2 or more Angina events in past 24 hrs: (0) No Known CAD with more than 50% Stenosis: (0) No Elevated Cardiac Markers: (0) No ST Deviation Greater than 0.5mm: (0) No ROBERT Score: 0 ED Medical Decision Making - Lab Data Result diagrams: 08/29/18 03:29 08/29/18 03:29 Laboratory Results - last 24 hr 08/29/18 08/29/18 08/29/18 03:29 03:29 03:29 WBC 10.7 RBC 5.52 H Hgb 12.5 Hct 39.8 MCV 72 L MCH 23 L MCHC 31 RDW 14.6 Plt Count 305 Lymph # Psychologist Chief Add Manual Diff Complete Total Counted 100 Seg Neuts % (Manual) 42.0 Band Neutrophils % 0 Lymphocytes % (Manual) 44.0 H Reactive Lymphs % (Man) 4.0 Monocytes % (Manual) 8.0 H Eosinophils % (Manual) 2.0 Basophils % (Manual) 0 Metamyelocytes % 0 Myelocytes % 0 Promyelocytes % 0 Blast Cells % 0 Nucleated RBC % 1.0 H Seg Neutrophils # Man 4.5 Band Neutrophils # 0.0 Lymphocytes # (Manual) 4.7 Abs React Lymphs (Man) 0.4 Monocytes # (Manual) 0.9 H Eosinophils # (Manual) 0.2 Basophils # (Manual) 0.0 Metamyelocytes # 0.0 Myelocytes # 0.0 Promyelocytes # 0.0 Blast Cells # 0.0 WBC Morphology Not Reportable TNR Hypersegmented Neuts Not Reportable Hyposegmented Neuts Not Reportable Hypogranular Neuts Not Reportable Smudge Cells Not Reportable Toxic Granulation Not Reportable Toxic Vacuolation Not Reportable Dohle Bodies Not Reportable Pelger-Huet Anomaly Not Reportable Nadine Rods Not Reportable Platelet Estimate Consistent w auto Clumped Platelets Not Reportable Plt Clumps, EDTA Not Reportable Large Platelets Not Reportable Giant Platelets Not Reportable Platelet Satelliting Not Reportable Plt Morphology Comment Not Reportable RBC Morphology Not Reportable Dimorphic RBCs Not Reportable Polychromasia Not Reportable Hypochromasia Not Reportable Poikilocytosis Not Reportable Anisocytosis Not Reportable Microcytosis Not Reportable Macrocytosis Not Reportable Spherocytes Not Reportable Pappenheimer Bodies Not Reportable Sickle Cells Not Reportable Target Cells Not Reportable Tear Drop Cells Not Reportable Ovalocytes Not Reportable Helmet Cells Not Reportable Travis-Between Bodies Not Reportable [place] Rings Not Reportable [place] Cells Not Reportable Bite Cells Not Reportable Crenated Cell Not Reportable Elliptocytes Not Reportable Acanthocytes (Spur) Not Reportable Rouleaux Not Reportable Hemoglobin C Crystals Not Reportable Schistocytes Not Reportable Malaria parasites Not Reportable Kingsley Bodies Not Reportable Hem Pathologist Commnt No Sodium 133 L Potassium 3.6 Chloride 96.4 L Carbon Dioxide 23 Anion Gap 17 BUN 8 Creatinine 0.8 Estimated GFR > 60 BUN/Creatinine Ratio 10 Glucose 140 H Calcium 9.2 Troponin T < 0.010 - EKG Data EKG shows normal: sinus rhythm, axis, intervals, QRS complexes Rate: tachycardia - EKG Data Interpretation: nonspecific ST-T wave brigitte (very mild inferolateral ST depression of less than a millimeter in magnitude) - Radiology Data Radiology results: report reviewed (chest x-ray no acute process) Critical care attestation.: If time is entered above; I have spent that time in minutes in the direct care of this critically ill patient, excluding procedure time. ED Disposition Clinical Impression: Chest pain Qualifiers: Chest pain type: unspecified Qualified Code(s): R07.9 - Chest pain, unspecified Disposition: 09 OP ADMIT IP TO THIS HOSP Is pt being admited?: Yes Does the pt Need Aspirin: Yes Condition: Stable Instructions: Chest Pain (ED) Referrals: DELILAH VICK MD [Primary Care Provider] - 3-5 Days Time of Disposition: 08:45
--- NOTE | 2018-08-29 10:59 | History and Physical Report ---
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 She was discharged home from ED with Prednisone for acute asthma exacerbation. She returns with new Chest pains and worsening palpitations. This chest pains started the day after she left the ED. The chest pains is described as a heaviness non radiating substernal varying intensity constant pressure like pains aggravated by touch/ movement and helped by laying down. She denies worsening of sob. She feels her heart racing. She has been using her albuterol inhaler quit a bit. She reports having a stress test in 2016. She also believes her heart racing is associated with her anxiety. PMH: as hpi PSH: breast reduction and tubal ligation SH: no tob/eoh/illicit drug abuse FH: no premature CAD, denies hypertension, but just about everyone has DM, including siblings, father, et. al ROS: Constitutional: denies: fever ENT: denies: throat or neck pain Respiratory: denies: cough, +prior shortness of breath Cardiovascular: + chest pain Endocrine: denies unexplained weight loss or gain Gastrointestinal: denies: abdominal pain, nausea Genitourinary: denies: dysuria Rectal: denies no incontinence, no bleeding, no itching, no discharge Musculoskeletal: denies swelling, myaglia, muscle weakness Skin: denies: rash Neurological: denies: headache Hematological/Lymphatic: denies: easy bleeding or easy bruising Allergic/Immunologic: no urticaria, no allergic rhinitis, no anaphylaxis Psych: denies sadness or hopelessness, SI/HI, denies depression, +anxiety Medications and Allergies Allergies Allergy/AdvReac Type Severity Reaction Status Date / Time No Known Allergies Allergy Verified 06/06/18 15:55 Home Medications Medication Instructions Recorded Confirmed Last Taken Type Atenolol [Tenormin] 25 mg PO DAILY #30 tab 09/26/16 Unknown Rx LORazepam [Ativan] 0.5 mg PO Q6H PRN #20 tablet 09/26/16 Unknown Rx Ibuprofen [Ibuprofen 800] 800 mg PO TID PRN #30 tablet 06/06/18 Unknown Rx Nitrofurantoin Monohyd/M-Cryst 100 mg PO BID 7 Days #14 capsule 06/06/18 Unknown Rx [Macrobid 100 mg Capsule] diphenhydrAMINE [Benadryl CAP] 25 mg PO Q8HR PRN #30 capsule 06/06/18 Unknown Rx predniSONE [Deltasone] 40 mg PO QDAY #14 tab 08/21/18 Unknown Rx Exam - Physical Exam Narrative exam: Gen: WDWN, NAD, Awake, Alert, Orientated x 3, bmi 35.5 HEENT: NCAT, EOMI, PERRL, OP Clear Neck: supple, no adenopathy, no thyromegaly, no JVD CVS/Heart: RRR, normal S1S2, pulses present bilaterally Chest/Lungs: CTA B, Symmetrical chest expansion, good air entry bilaterally, reproducible chest wall tenderness, substernal area, unable to touch with stethoscope GI/Abdomen: soft, NTND, good bowel sounds, no guarding or rebound /Bladder: no suprapubic tenderness, no CVA or paraspinal tenderness Extermity/Skin: no c/c/e, no obvious rash MSK: FROM x 4 Neuro: CN 2-12 grossly intact, no new focal deficits Psych: calm - Constitutional Vitals: Temp Pulse Resp BP Pulse Ox 98.0 F 87 17 124/60 100 08/29/18 04:57 08/29/18 09:00 08/29/18 09:00 08/29/18 10:00 08/29/18 09:00 Results - Labs CBC & Chem 7: 08/29/18 03:29 08/29/18 03:29 Labs: Abnormal lab results 08/29/18 08/29/18 Range/Units 03:29 03:29 RBC 5.52 H (3.65-5.03) M/mm3 MCV 72 L (79-97) fl MCH 23 L (28-32) pg Lymphocytes % (Manual) 44.0 H (13.4-35.0) % Monocytes % (Manual) 8.0 H (0.0-7.3) % Nucleated RBC % 1.0 H (0.0-0.9) % Monocytes # (Manual) 0.9 H (0.0-0.8) K/mm3 Sodium 133 L (137-145) mmol/L Chloride 96.4 L (98-107) mmol/L Glucose 140 H (65-100) mg/dL Assessment and Plan Patient is a 43 yo woman with a history of borderline DM, anxiety disorder (she says she uses ativan 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 She was discharged home from ED with Prednisone for acute asthma exacerbation. She returns with new Chest pains and worsening palpitations. This chest pains started the day after she left the ED. The chest pains is described as a heaviness non radiating substernal varying intensity constant pressure like pains aggravated by touch/ movement and helped by laying down. She denies worsening of sob. She feels her heart racing. She has been using her albuterol inhaler quit a bit. She reports having a stress test in 2016. She also believes her heart racing is associated with her anxiety. * pCXR no acute finding * EKG sinus tachycardia 111 * negative Troponin x 2 Chest pains, atypical: stress test in am. Tachycardia, palpitations could be albuterol related vs anxiety vs arrhythmia vs other: monitor on tele overnight, add steroid and long acting inhaler Anxiety disorder: add anxiolytic Hyponatemia, mild with hyperglycemia Hyperglycemia, has been told in the past about high blood sugars: check A1C GURPREET on cpap: consult Respiratory therapy Obese, bmi 35.5: certified rehabilitation counselor on weight reduction DVT/GI prophylaxis: sq heparin and ppi full code Disposition: inpatient care with stress test in am. Home reconciliation done
[2018-08-29] MEDS ORDERED: TYLENOL PO PRN (11:00)
[2018-08-29] MEDS ORDERED: ZOFRAN IV PRN (11:00)
[2018-08-29] MEDS ORDERED: MIRALAX 3350 PO PRN (11:00)
[2018-08-29] MEDS ORDERED: MORPHINE IV PRN (11:00)
[2018-08-29] MEDS ORDERED: NORCO 5/325 PO PRN (11:00)
[2018-08-29] MEDS ORDERED: ATIVAN PO PRN (11:02)
[2018-08-29] MEDS ORDERED: BENADRYL PO PRN (11:02)
[2018-08-29] MEDS ORDERED: PROVENTIL IH PRN (11:03)
[2018-08-29] MEDS ORDERED: PULMICORT IH SCH (11:15)
[2018-08-29] MEDS: PULMICORT IH SCH ×2 (12:02→19:45)
[2018-08-29] MEDS: BROVANA NEBU IH SCH ×2 (12:02→19:45)
[2018-08-29] MEDS: TENORMIN PO SCH (12:14)
[2018-08-30] MEDS: PULMICORT IH SCH (08:03)
[2018-08-30] MEDS: BROVANA NEBU IH SCH (08:03)
[2018-08-30 08:27] LABS: BUN/Creatinine Ratio 9; Blood Urea Nitrogen 6 mg/dL (7-17); Calcium 8.7 mg/dL (8.4-10.2); Hemolysis Index 0
[2018-08-30] MEDS ORDERED: PROTONIX PO SCH (10:00)
[2018-08-30] MEDS ORDERED: HEPARIN SUB-Q SCH (11:00)
[2018-08-30] MEDS: TENORMIN PO SCH (11:14)
[2018-08-30 12:01] VITALS: BP 100/65
--- NOTE | 2018-08-30 12:23 | Discharge Summary ---
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 She was discharged home from ED with Prednisone for acute asthma exacerbation. She returns with new Chest pains and worsening palpitations. This chest pains started the day after she left the ED. The chest pains is described as a heaviness non radiating substernal varying intensity constant pressure like pains aggravated by touch/ movement and helped by laying down. She denies worsening of sob. She feels her heart racing. She has been using her albuterol inhaler quit a bit. She reports having a stress test in 2016. She also believes her heart racing is associated with her anxiety. * pCXR no acute finding * EKG sinus tachycardia 111 * negative Troponin x 2 Chest pains, atypical, most likely costochrondritis: stress test negative. 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 DVT/GI prophylaxis: sq heparin and ppi full code Disposition: home Home reconciliation done Disposition: TO HOME OR SELFCARE Time spent for discharge: 32 minutes Core Measure Documentation - Palliative Care Palliative Care/ Comfort Measures: Not Applicable - Core Measures Any of the following diagnoses?: none - VTE Discharge Requirements Deep Vein Thrombosis/Pulmonary Embolism Present on Admission: No Has pt received <5 days of overlap therapy or INR<2.0: No Anticoagulant overlap therapy prescribed at discharge: No Contraindication No Overlap Therapy order at DC: Not Indicated Exam - Physical Exam Narrative exam: Gen: WDWN, NAD, Awake, Alert, Orientated x 3, bmi 35.5 HEENT: NCAT, EOMI, PERRL, OP Clear Neck: supple, no adenopathy, no thyromegaly, no JVD CVS/Heart: RRR, normal S1S2, pulses present bilaterally Chest/Lungs: CTA B, Symmetrical chest expansion, good air entry bilaterally, reproducible chest wall tenderness, substernal area, unable to touch with stethoscope GI/Abdomen: soft, NTND, good bowel sounds, no guarding or rebound /Bladder: no suprapubic tenderness, no CVA or paraspinal tenderness Extermity/Skin: no c/c/e, no obvious rash MSK: FROM x 4 Neuro: CN 2-12 grossly intact, no new focal deficits Psych: calm - Constitutional Vitals: Temp Pulse Resp BP Pulse Ox 98.0 F 66 18 100/65 100 08/30/18 11:59 08/30/18 11:59 08/30/18 11:59 08/30/18 11:59 08/30/18 11:59 Plan Activity: other (no strenous activity unless cleared by PCP) Diet: regular Special Instructions: record daily BP diary Additional Instructions: See Dr. De La Rosa for your asthma [facility] - 3-5 Days KAITLYNN DE LA ROSA MD [Staff Physician] - 7 Days Prescriptions: LORazepam [Ativan] 0.5 mg PO Q12H PRN #20 tablet PRN Reason: Anxiety methylPREDNISolone [Medrol 4MG DOSEPAK (21 tabs)] 1 dose PO DAILY #1 tab.ds.pk ALBUTEROL Inhaler (OR & NICU) [ProAir HFA Inhaler] 2 puff IH QID PRN #1 inhalation PRN Reason: Shortness Of Breath ALBUTEROL NEB's [Proventil 0.083% NEBS] 2.5 mg IH Q4HRT PRN #30 nebu PRN Reason: Shortness Of Breath Budesonide/Formoterol Fumarate [Symbicort 160-4.5 Mcg Inhaler] 2 gm IH BID #1 hfa.aer.ad
--- NOTE | 2018-08-30 22:55 | Treadmill Report ---
INDICATION: Chest pain. ORDERING PHYSICIAN: David Velasquez MD FINDINGS: There is no scintigraphic evidence of myocardial ischemia. The left ventricle is normal in size and systolic function. The left ventricular ejection fraction is measured at 73%. Normal wall motion and wall thickening on gated imaging. CONCLUSION: Normal perfusion scan. JOB# [id number]
== END 2018-08-30 15:55 | disposition home or self-care (01) | DRG 206 ==
LOC: ED 03:07 → 4A 08:34
PROVIDERS: ADMIT Internal Medicine; ATTEND Internal Medicine
DX: M94.0 Chondrocostal junction syndrome [Tietze] (principal); E87.1 Hypo-osmolality and hyponatremia; F41.9 Anxiety disorder, unspecified; I10 Essential (primary) hypertension; E66.9 Obesity, unspecified; G47.33 Obstructive sleep apnea (adult) (pediatric); R00.2 Palpitations; E11.65 Type 2 diabetes mellitus with hyperglycemia; Z98.51 Tubal ligation status; Z79.899 Other long term (current) drug therapy; Z79.84 Long term (current) use of oral hypoglycemic drugs; Z68.35 Body mass index [BMI] 35.0-35.9, adult; Z71.3 Dietary counseling and surveillance
CPT/HCPCS: 36415; 71045; 78452; 80048; 83036; 84484; 85007; 85025; 93005; 93010; 93017; 94640; G0378; A9502; J1644

== ENCOUNTER 2018-09-03 23:34 | Emergency (ER) | payer MEDICAID ==
[2018-09-03 23:41] VITALS: BP 147/92
[2018-09-03] MEDS ORDERED: DUONEB *Not for PRN Use IH ONE (23:42)
[2018-09-04] MEDS ORDERED: SOLU-Medrol IV ONE (00:13)
[2018-09-04] MEDS ORDERED: XOPENEX IH ONE (00:17)
--- NOTE | 2018-09-04 00:17 | XRay Report ---
PROCEDURE: XR CHEST ROUTINE 2V TECHNIQUE: PA and lateral chest radiographs were obtained. HISTORY: difficulty breathing COMPARISONS: August 29, 2018. FINDINGS: Heart: Normal. Mediastinum/Vessels: Normal. Lungs/Pleural space: Normal. Bony thorax: No acute osseous abnormality. IMPRESSION: Normal examination. This document is electronically signed by Megan Reece DO., Sep 04 2018 12:15:17 AM ET
--- NOTE | 2018-09-04 00:22 | Emergency Department Report ---
ED Asthma HPI - General Chief Complaint: Dyspnea/Respdistress Stated Complaint: SOB Time Seen by Provider: 09/04/18 00:13 Source: patient Mode of arrival: Ambulatory Limitations: No Limitations - History of Present Illness Initial Comments: Patient is 43 years old female with history of asthma. Patient presented to the ER complaining of shortness of breath and wheezing started yesterday. Patient stated the symptoms started with runny nose, cough and congestion and then developed to a tightness and shortness of breath and wheezing. Patient denied any fever or chills. No nausea or vomiting. MD Complaint: "asthma attack", shortness of breath, wheezing Severity: moderate Context: recent URI Associated Symptoms: dry cough - Related Data Previous Rx's Medication Instructions Recorded Last Taken Type Atenolol [Tenormin] 25 mg PO DAILY #30 tab 09/26/16 Unknown Rx Nitrofurantoin Monohyd/M-Cryst 100 mg PO BID 7 Days #14 capsule 06/06/18 Unknown Rx [Macrobid 100 mg Capsule] diphenhydrAMINE [Benadryl CAP] 25 mg PO Q8HR PRN #30 capsule 06/06/18 Unknown Rx ALBUTEROL Inhaler (OR & NICU) 2 puff IH QID PRN #1 inhalation 08/30/18 Unknown Rx [ProAir HFA Inhaler] ALBUTEROL NEB's [Proventil 0.083% 2.5 mg IH Q4HRT PRN #30 nebu 08/30/18 Unknown Rx NEBS] Acetaminophen [Acetaminophen TAB] 325 mg PO Q6H PRN #14 tablet 08/30/18 Unknown Rx Budesonide/Formoterol Fumarate 2 gm IH BID #1 hfa.aer.ad 08/30/18 Unknown Rx [Symbicort 160-4.5 Mcg Inhaler] LORazepam [Ativan] 0.5 mg PO Q12H PRN #20 tablet 08/30/18 Unknown Rx Pantoprazole [Protonix TAB] 40 mg PO QDAY #14 tablet 08/30/18 Unknown Rx methylPREDNISolone [Medrol 4MG 1 dose PO DAILY #1 tab.ds.pk 08/30/18 Unknown Rx DOSEPAK (21 tabs)] Allergies Allergy/AdvReac Type Severity Reaction Status Date / Time No Known Allergies Allergy Verified 06/06/18 15:55 ED Review of Systems ROS: Stated complaint: SOB Other details as noted in HPI Comment: All other systems reviewed and negative Constitutional: denies: chills, fever Respiratory: cough, shortness of breath, SOB with exertion, SOB at rest, wheezing Cardiovascular: denies: chest pain, palpitations Gastrointestinal: denies: abdominal pain, nausea, diarrhea, constipation, hematemesis, melena, hematochezia Musculoskeletal: denies: back pain Neurological: denies: headache, weakness, numbness, paresthesias, confusion ED Past Medical Hx - Past Medical History Previous Medical History?: Yes Hx Hypertension: Yes Hx Arthritis: Yes (BACK) Hx Asthma: Yes Additional medical history: Anxiety, Sleep Apnea - Surgical History Past Surgical History?: Yes Hx Breast Surgery: (breast reduction) Additional Surgical History: tubal ligation - Social History Smoking Status: Never Smoker Substance Use Type: None - Medications Home Medications: Home Medications Medication Instructions Recorded Confirmed Last Taken Type Atenolol [Tenormin] 25 mg PO DAILY #30 tab 09/26/16 Unknown Rx Nitrofurantoin Monohyd/M-Cryst 100 mg PO BID 7 Days #14 capsule 06/06/18 Unknown Rx [Macrobid 100 mg Capsule] diphenhydrAMINE [Benadryl CAP] 25 mg PO Q8HR PRN #30 capsule 06/06/18 Unknown Rx ALBUTEROL Inhaler (OR & NICU) 2 puff IH QID PRN #1 inhalation 08/30/18 Unknown Rx [ProAir HFA Inhaler] ALBUTEROL NEB's [Proventil 0.083% 2.5 mg IH Q4HRT PRN #30 nebu 08/30/18 Unknown Rx NEBS] Acetaminophen [Acetaminophen TAB] 325 mg PO Q6H PRN #14 tablet 08/30/18 Unknown Rx Budesonide/Formoterol Fumarate 2 gm IH BID #1 hfa.aer.ad 08/30/18 Unknown Rx [Symbicort 160-4.5 Mcg Inhaler] LORazepam [Ativan] 0.5 mg PO Q12H PRN #20 tablet 08/30/18 Unknown Rx Pantoprazole [Protonix TAB] 40 mg PO QDAY #14 tablet 08/30/18 Unknown Rx methylPREDNISolone [Medrol 4MG 1 dose PO DAILY #1 tab.ds.pk 08/30/18 Unknown Rx DOSEPAK (21 tabs)] ED Physical Exam - General Limitations: No Limitations General appearance: alert, in no apparent distress - Head Head exam: Present: atraumatic, normocephalic, normal inspection - Eye Eye exam: Present: normal appearance, PERRL - ENT ENT exam: Present: normal exam, normal orophraynx, mucous membranes moist - Neck Neck exam: Present: normal inspection, full ROM. Absent: tenderness, meningismus, lymphadenopathy, thyromegaly - Respiratory Respiratory exam: Present: wheezes, rhonchi. Absent: respiratory distress, rales, stridor, chest wall tenderness, accessory muscle use, decreased breath so unds, prolonged expiratory - Cardiovascular Cardiovascular Exam: Present: tachycardia - GI/Abdominal GI/Abdominal exam: Present: soft, normal bowel sounds. Absent: distended, tenderness, guarding, rebound, rigid, organomegaly, mass, bruit, pulsatile mass, hernia - Extremities Exam Extremities exam: Present: normal inspection, full ROM, normal capillary refill - Back Exam Back exam: Absent: CVA tenderness (R), CVA tenderness (L) - Neurological Exam Neurological exam: Present: alert, oriented X3, CN II-XII intact, normal gait - Skin Skin exam: Present: warm, normal color ED Course Vital Signs 09/03/18 09/03/18 09/04/18 23:39 23:58 00:13 Temperature 98.2 F Pulse Rate 134 H Pulse Rate [ 121 H 128 H Anterior Bilateral Throughout] Respiratory 18 Rate Respiratory 21 21 Rate [Anterior Bilateral Throughout] Blood Pressure 147/92 O2 Sat by Pulse 98 Oximetry 09/04/18 09/04/18 00:25 00:52 Temperature Pulse Rate Pulse Rate [ 121 H 121 H Anterior Bilateral Throughout] Respiratory Rate Respiratory 21 21 Rate [Anterior Bilateral Throughout] Blood Pressure O2 Sat by Pulse Oximetry ED Medical Decision Making - Lab Data Result diagrams: 09/04/18 01:21 09/04/18 01:21 - Radiology Data Radiology results: report reviewed Chest x-ray is unremarkable. - Medical Decision Making Patient is 43 years old female with history of asthma. Patient presented to the ER complaining of shortness of breath and wheezing started yesterday. Patient stated the symptoms started with runny nose, cough and congestion and then developed to a tightness and shortness of breath and wheezing. Patient denied any fever or chills. No nausea or vomiting. Patient received albuterol, Atrovent and Xopenex. Patient stated that she is feeling much better. Lungs clear to both sides no wheezing. Labs reviewed and is unremarkable except for a slightly elevated white blood cells which is could be due to chronic use of steroids. Patient advised to follow-up with her primary care physician in the next 2-3 days and to return to the ER if symptoms are not improved. Critical care attestation.: If time is entered above; I have spent that time in minutes in the direct care of this critically ill patient, excluding procedure time. ED Disposition Clinical Impression: Exacerbation of asthma Disposition: DC-01 TO HOME OR SELFCARE Is pt being admited?: No Condition: Stable Instructions: Asthma (ED) Referrals: DELILAH VICK MD [Primary Care Provider] - 3-5 Days
[2018-09-04 01:53] LABS: Basophils # (Auto) 0.1 K/mm3 (0.0-0.1); Basophils % (Auto) 0.5 % (0.0-1.8); Eosinophils # (Auto) 0.5 K/mm3 (0.0-0.4); Hematocrit 37.5 % (30.3-42.9); Hemoglobin 12.1 gm/dl (10.1-14.3); Lymphocytes # (Auto) 1.8 K/mm3 (1.2-5.4); Lymphocytes % (Auto) 11.7 % (13.4-35.0); Mean Corpuscular HGB Conc 32 % (30-34); Monocytes # (Auto) 0.6 K/mm3 (0.0-0.8); Monocytes % (Auto) 3.8 % (0.0-7.3); Red Blood Count 5.41 M/mm3 (3.65-5.03); Red Cell Distribution Width 14.8 % (13.2-15.2)
[2018-09-04 01:59] LABS: BUN/Creatinine Ratio 15; Blood Urea Nitrogen 12 mg/dL (7-17); Calcium 9.5 mg/dL (8.4-10.2); Hemolysis Index 24
[2018-09-04 02:03] LABS: Mean Corpuscular Volume 69 fl (79-97); Platelet Count 208 K/mm3 (140-440)
== END 2018-09-04 02:35 | disposition home or self-care (01) ==
LOC: ED 23:34
DX: J45.901 Unspecified asthma with (acute) exacerbation (principal); I10 Essential (primary) hypertension; M19.90 Unspecified osteoarthritis, unspecified site; G47.30 Sleep apnea, unspecified; Z98.51 Tubal ligation status
CPT/HCPCS: 36415; 71046; 80048; 85025; 94640; 96374; 99284; J2930

== ENCOUNTER 2018-12-05 07:41 | Emergency (ER) | payer MEDICAID ==
[2018-12-05 10:18] LABS: Basophils # (Auto) 0.1 K/mm3 (0.0-0.1); Basophils % (Auto) 1.2 % (0.0-1.8); Eosinophils # (Auto) 0.3 K/mm3 (0.0-0.4); Eosinophils % (Auto) 3.1 % (0.0-4.3); Hematocrit 38.7 % (30.3-42.9); Hemoglobin 12.3 gm/dl (10.1-14.3); Lymphocytes # (Auto) 2.8 K/mm3 (1.2-5.4); Lymphocytes % (Auto) 34.3 % (13.4-35.0); Mean Corpuscular HGB Conc 32 % (30-34); Mean Corpuscular Volume 72 fl (79-97); Monocytes # (Auto) 0.4 K/mm3 (0.0-0.8); Monocytes % (Auto) 4.9 % (0.0-7.3); Platelet Count 267 K/mm3 (140-440); Red Cell Distribution Width 14.9 % (13.2-15.2)
--- NOTE | 2018-12-05 10:30 | XRay Report ---
PROCEDURE: ABDOMEN FLAT AND UPRIGHT WITH SINGLE VIEW CHEST HISTORY: palp, abd pain COMPARISON: 09/03/2018 chest x-ray . TECHNIQUE: Supine and upright abdominal as well as single view chest radiographs obtained. FINDINGS: Lungs: The lungs are clear. The lung volumes are normal. Pleural Effusion: No evidence of a pleural effusion is seen. Pneumothorax: No evidence of pneumothorax is seen. Cardiac: The heart size is normal. Mediastinal silhouette: The mediastinal silhouette is normal. Hilar regions: The hilar regions are normal in appearance. Pulmonary vascularity: The pulmonary vascularity is normal in appearance. Trachea: The trachea is midline. Skeletal structures: The skeletal structures are normal in appearance. Support hardware: None. Additional findings: None. Bowel: The bowel gas pattern is normal in appearance. Moderate stool throughout the colon. No evidenc e of obstruction is seen. No evidence of free air is identified. Calcifications: A calcified density just superior to the left sacrum may be urinary calculus within t he left ureter. Osseous Structures: The skeletal structures are unremarkable in appearance. Additional findings: Phleboliths in the pelvis. IMPRESSION: 1. Normal chest. 2. A possible left ureteral calculus. Signer Name: Blake Prado MD Signed: 12/05/2018 10:25 AM Workstation Name: [id number]
[2018-12-05 10:37] LABS: Alanine Aminotransferase 15 units/L (7-56); Albumin 4.3 g/dL (3.9-5); BUN/Creatinine Ratio 22; Blood Urea Nitrogen 13 mg/dL (7-17); Calcium 9.2 mg/dL (8.4-10.2); Hemolysis Index 64
[2018-12-05 11:06] VITALS: BP 128/76
[2018-12-05 12:52] LABS: Bilirubin,Urine NEG (Negative); Blood,Urine NEG (Negative); Color,Urine Yellow (Yellow); Mucus,Urine FEW /HPF; Protein,Urine <15 mg/dL mg/dL (Negative); Urobilinogen,Urine < 2.0 mg/dL (<2.0)
--- NOTE | 2018-12-05 13:15 | Emergency Department Report ---
HPI - General Chief Complaint: Arrhythmia/Palpitations Time Seen by Provider: 12/05/18 09:12 - HPI HPI: 43-year-old female presents to the emergency department with multiple complaints. First, the patient says that she is having some heart palpitations going on since about 4 AM. Secondly, the patient complains of some midsternal chest pain that is reproducible to palpation as well as certain movements. This pain radiates around both sides of her chest and towards her back. Thirdly, the patient complains of some intermittent numbness and paresthesias to her face and legs the patient admits to history of anxiety and says that she took her hydroxyzine without any relief. Patient has a history of osteoporosis, asthma, hypertension, sleep apnea. The patient has a primary care physician through the [facility] system, Dr. Douglas. No recent travel or sick contacts at home. The patient had a negative stress test in August of this year. ED Past Medical Hx - Past Medical History Previous Medical History?: Yes Hx Hypertension: Yes Hx Arthritis: Yes (BACK) Hx Asthma: Yes Additional medical history: Anxiety, Sleep Apnea - Surgical History Past Surgical History?: Yes Hx Breast Surgery: (breast reduction) Additional Surgical History: tubal ligation - Social History Smoking Status: Never Smoker Substance Use Type: Alcohol - Medications Home Medications: Home Medications Medication Instructions Recorded Confirmed Last Taken Type Atenolol [Tenormin] 25 mg PO DAILY #30 tab 09/26/16 Unknown Rx Nitrofurantoin Monohyd/M-Cryst 100 mg PO BID 7 Days #14 capsule 06/06/18 Unknown Rx [Macrobid 100 mg Capsule] diphenhydrAMINE [Benadryl CAP] 25 mg PO Q8HR PRN #30 capsule 06/06/18 Unknown Rx ALBUTEROL Inhaler (OR & NICU) 2 puff IH QID PRN #1 inhalation 08/30/18 Unknown Rx [ProAir HFA Inhaler] ALBUTEROL NEB's [Proventil 0.083% 2.5 mg IH Q4HRT PRN #30 nebu 08/30/18 Unknown Rx NEBS] Acetaminophen [Acetaminophen TAB] 325 mg PO Q6H PRN #14 tablet 08/30/18 Unknown Rx Budesonide/Formoterol Fumarate 2 gm IH BID #1 hfa.aer.ad 08/30/18 Unknown Rx [Symbicort 160-4.5 Mcg Inhaler] LORazepam [Ativan] 0.5 mg PO Q12H PRN #20 tablet 08/30/18 Unknown Rx Pantoprazole [Protonix TAB] 40 mg PO QDAY #14 tablet 08/30/18 Unknown Rx methylPREDNISolone [Medrol 4MG 1 dose PO DAILY #1 tab.ds.pk 08/30/18 Unknown Rx DOSEPAK (21 tabs)] Prednisone [predniSONE 10 mg 10 mg PO .TAPER #1 tab.ds.pk 09/04/18 Unknown Rx (6-Day Pack, 21 Tabs)] guaiFENesin/CODEINE [Robitussin AC] 10 ml PO TID PRN #100 ml 09/04/18 Unknown Rx levoFLOXacin [Levaquin TAB] 500 mg PO QDAY #7 tablet 09/04/18 Unknown Rx ED Review of Systems ROS: Stated complaint: CHEST PAIN/DIZZINESS/WEAKNESS IN (L) LEG Other details as noted in HPI Constitutional: denies: chills, fever Eyes: denies: eye pain, vision change ENT: denies: ear pain, throat pain Respiratory: wheezing. denies: cough Cardiovascular: chest pain, palpitations. denies: edema Gastrointestinal: abdominal pain. denies: vomiting Genitourinary: denies: dysuria, discharge Musculoskeletal: denies: joint swelling, arthralgia Skin: denies: rash, lesions Neurological: paresthesias. denies: headache Physical Exam - Physical Exam Vital Signs: Vital Signs 12/05/18 12/05/18 12/05/18 07:53 09:10 11:02 Temperature 98.6 F 98.3 F Pulse Rate 118 H 92 H Respiratory 18 18 Rate Blood Pressure 138/93 Blood Pressure 139/94 128/76 [Right] O2 Sat by Pulse 97 100 98 Oximetry Physical Exam: GENERAL: The patient is well-developed well-nourished. HENT: Normocephalic. Atraumatic. Patient has moist mucous membranes. EYES: Extraocular motions are intact. Pupils equal reactive to light bilaterally. No nystagmus. NECK: Supple. Trachea is midline. CHEST/LUNGS: Clear to auscultation. There is no respiratory distress noted. There is reproducible chest pain to palpation of the chest wall. HEART/CARDIOVASCULAR: Regular. There is no tachycardia. There is no murmur. ABDOMEN: Abdomen is soft, nontender. Patient has normal bowel sounds. There is no abdominal distention. SKIN: Skin is warm and dry. NEURO: The patient is awake, alert, and oriented. The patient is cooperative. The patient has no focal neurologic deficits. Normal speech. Cranial nerves II through XII grossly intact. MUSCULOSKELETAL: There is no tenderness or deformity. There is no limitation range of motion. There is no evidence of acute injury. ED Course Vital Signs 12/05/18 12/05/18 12/05/18 07:53 09:10 11:02 Temperature 98.6 F 98.3 F Pulse Rate 118 H 92 H Respiratory 18 18 Rate Blood Pressure 138/93 Blood Pressure 139/94 128/76 [Right] O2 Sat by Pulse 97 100 98 Oximetry ED Medical Decision Making - Lab Data Result diagrams: 12/05/18 10:05 12/05/18 10:05 - EKG Data -: EKG Interpreted by Me EKG shows normal: sinus rhythm, axis, intervals, QRS complexes, ST-T waves Rate: tachycardia (106 bpm) - EKG Data When compared to previous EKG there are: no significant change Interpretation: unchanged when compared t (08/30/18) - Radiology Data Radiology results: image reviewed interpreted by me: Chest x-ray does not show any acute process. There are no pleural effusions, obvious pneumonia and there is no pneumothorax. Abdominal x-ray shows nonspecific nonobstructive bowel gas - Medical Decision Making This patient presents with multiple complaints. Regarding her chest pain, the patient has reproducible midsternal chest pain that is more consistent with costochondritis. She also had a negative heart catheterization in August of this year. EKG did not show any signs of ST elevation AL. She had a negative troponin and negative d-dimer. Regarding the abdominal pain, the abdomen is soft, nondistended and nontoxic in appearance. Abdominal x-ray shows nonspecific nonobstructive bowel gas. Normal belly labs. Urinalysis does not show any signs of urinary tract infection or hematuria. Patient is not . Regarding her palpitations, once again, the EKG did not show any signs of dysrhythmia. She had a negative d-dimer with concern for pulmonary embolism. Some of the patient's symptoms may be related to anxiety as she admits to a history of anxiety and panic attacks and does appear slightly anxious at times during her examination. Her vital signs were stable throughout her ED course. Her labs have been unremarkable. The patient was reevaluated multiple times over multiple hours since that she is feeling improved. She will be discharged home to follow up with her primary care physician in the next few days. Her information is also been faxed over to the [place] [facility] for close outpatient follow-up in the next 48 hours. She will return to ER with any worsening of her symptoms or any acute distress. - Differential Diagnosis dysrhythmia, AL, PE, costochondritis, anxiety Critical Care Time: No Critical care attestation.: If time is entered above; I have spent that time in minutes in the direct care of this critically ill patient, excluding procedure time. ED Disposition Clinical Impression: Palpitations, Anxiety Chest pain Qualifiers: Chest pain type: unspecified Qualified Code(s): R07.9 - Chest pain, unspecified Abdominal pain Qualifiers: Abdominal location: generalized Qualified Code(s): R10.84 - Generalized abdominal pain Disposition: - TO HOME OR SELFCARE Is pt being admited?: No Condition: Stable Instructions: Chest Pain (ED), Palpitations (ED), Abdominal Pain (ED), Anxiety (ED) Additional Instructions: Please follow-up with your primary care physician in the next few days. You should be contacted by someone [place] [facility] for an outpatient follow-up regarding your chest pain and palpitations in the next 1-2 days. Return to the emergency Department with any worsening of your symptoms or any acute distress. Referrals: JERALD LOPEZ [Other] - 2-3 Days [facility] [Provider Group] - 2-3 Days
== END 2018-12-05 13:45 | disposition home or self-care (01) ==
LOC: ED 07:41
DX: F41.9 Anxiety disorder, unspecified (principal); R00.2 Palpitations; R07.2 Precordial pain; R10.84 Generalized abdominal pain; I10 Essential (primary) hypertension; M19.90 Unspecified osteoarthritis, unspecified site; J45.909 Unspecified asthma, uncomplicated; G47.30 Sleep apnea, unspecified; Z98.51 Tubal ligation status; Z79.899 Other long term (current) drug therapy
CPT/HCPCS: 36415; 74022; 80053; 81001; 84443; 84484; 84703; 85025; 85379; 93005; 93010; 99284

== ENCOUNTER 2018-12-23 23:49 | Emergency (ER) | payer MEDICAID ==
[2018-12-24] MEDS ORDERED: ASPIRIN PO ONE (00:17)
[2018-12-24 00:47] LABS: Basophils # (Auto) 0.1 K/mm3 (0.0-0.1); Basophils % (Auto) 1.3 % (0.0-1.8); Eosinophils # (Auto) 0.2 K/mm3 (0.0-0.4); Hematocrit 34.5 % (30.3-42.9); Hemoglobin 11.3 gm/dl (10.1-14.3); Lymphocytes # (Auto) 3.3 K/mm3 (1.2-5.4); Lymphocytes % (Auto) 37.7 % (13.4-35.0); Mean Corpuscular HGB Conc 33 % (30-34); Mean Corpuscular Volume 71 fl (79-97); Monocytes # (Auto) 0.5 K/mm3 (0.0-0.8); Monocytes % (Auto) 5.5 % (0.0-7.3); Platelet Count 303 K/mm3 (140-440); Red Blood Count 4.88 M/mm3 (3.65-5.03); Red Cell Distribution Width 14.5 % (13.2-15.2)
[2018-12-24 01:22] LABS: BUN/Creatinine Ratio 7; Blood Urea Nitrogen 4 mg/dL (7-17); Calcium 9.4 mg/dL (8.4-10.2); Hemolysis Index 6
[2018-12-24] MEDS ORDERED: TORADOL IV ONE (02:25)
[2018-12-24] MEDS ORDERED: NACL 0.9% 1000 ML 1,000 ML IV ONE (02:25)
--- NOTE | 2018-12-24 02:30 | Emergency Department Report ---
ED Abdominal Pain HPI - General Chief Complaint: Abdominal Pain Stated Complaint: LEFT SIDE PAIN, NUMBNESS Time Seen by Provider: 12/24/18 01:52 Source: patient Mode of arrival: Ambulatory Limitations: No Limitations - History of Present Illness Initial Comments: 43 yo F presents to ED with left flank pain. States pain began 4 hours ago, sharp in nature. Denies N/V, fever, hematuria, urinary frequency, cough, SOB. Pt states the pain triggered her to have an anxiety attack in which he experienced left arm and leg tingling, heart racing, which is normal for her usual anxiety attacks. Pt states the tingling has subsided and her anxiety has improved, but states the flank pain is still present. Pt states she was seen in the ED for chest pain about a week ago and was told that she may have a kidney stone, seen on xray. No previous hx of kidney stones. MD Complaint: flank pain -: hour(s) (4) Location: L flank Migration to: no migration Severity: moderate Quality: sharp Consistency: constant Improves With: nothing Worsens With: nothing Associated Symptoms: denies: nausea, vomiting, diarrhea, fever, dysuria, hematuria - Related Data Previous Rx's Medication Instructions Recorded Last Taken Type Atenolol [Tenormin] 25 mg PO DAILY #30 tab 09/26/16 Unknown Rx Nitrofurantoin Monohyd/M-Cryst 100 mg PO BID 7 Days #14 capsule 06/06/18 Unknown Rx [Macrobid 100 mg Capsule] diphenhydrAMINE [Benadryl CAP] 25 mg PO Q8HR PRN #30 capsule 06/06/18 Unknown Rx ALBUTEROL Inhaler (OR & NICU) 2 puff IH QID PRN #1 inhalation 08/30/18 Unknown R x [ProAir HFA Inhaler] ALBUTEROL NEB's [Proventil 0.083% 2.5 mg IH Q4HRT PRN #30 nebu 08/30/18 Unknown Rx NEBS] Acetaminophen [Acetaminophen TAB] 325 mg PO Q6H PRN #14 tablet 08/30/18 Unknown Rx Budesonide/Formoterol Fumarate 2 gm IH BID #1 hfa.aer.ad 08/30/18 Unknown Rx [Symbicort 160-4.5 Mcg Inhaler] LORazepam [Ativan] 0.5 mg PO Q12H PRN #20 tablet 08/30/18 Unknown Rx Pantoprazole [Protonix TAB] 40 mg PO QDAY #14 tablet 08/30/18 Unknown Rx methylPREDNISolone [Medrol 4MG 1 dose PO DAILY #1 tab.ds.pk 08/30/18 Unknown Rx DOSEPAK (21 tabs)] Prednisone [predniSONE 10 mg 10 mg PO .TAPER #1 tab.ds.pk 09/04/18 Unknown Rx (6-Day Pack, 21 Tabs)] guaiFENesin/CODEINE [Robitussin AC] 10 ml PO TID PRN #100 ml 09/04/18 Unknown Rx levoFLOXacin [Levaquin TAB] 500 mg PO QDAY #7 tablet 09/04/18 Unknown Rx Naproxen [Naprosyn] 500 mg PO BID #20 tablet 12/24/18 Unknown Rx methOCARBAMOL [Robaxin TAB] 500 mg PO Q8HR PRN #20 tablet 12/24/18 Unknown Rx Allergies Allergy/AdvReac Type Severity Reaction Status Date / Time No Known Allergies Allergy Verified 06/06/18 15:55 ED Review of Systems ROS: Stated complaint: LEFT SIDE PAIN, NUMBNESS Other details as noted in HPI Comment: All other systems reviewed and negative Constitutional: denies: chills, fever Respiratory: denies: cough, shortness of breath Cardiovascular: denies: chest pain Gastrointestinal: abdominal pain. denies: nausea, vomiting, diarrhea Genitourinary: denies: dysuria, frequency, hematuria Musculoskeletal: back pain ED Past Medical Hx - Past Medical History Previous Medical History?: Yes Hx Hypertension: Yes Hx Arthritis: Yes (BACK) Hx Asthma: Yes Additional medical history: Anxiety, Sleep Apnea - Surgical History Past Surgical History?: Yes Hx Breast Surgery: (breast reduction) Additional Surgical History: tubal ligation - Social History Smoking Status: Never Smoker Substance Use Type: None - Medications Home Medications: Home Medications Medication Instructions Recorded Confirmed Last Taken Type Atenolol [Tenormin] 25 mg PO DAILY #30 tab 09/26/16 Unknown Rx Nitrofurantoin Monohyd/M-Cryst 100 mg PO BID 7 Days #14 capsule 06/06/18 Unknown Rx [Macrobid 100 mg Capsule] diphenhydrAMINE [Benadryl CAP] 25 mg PO Q8HR PRN #30 capsule 06/06/18 Unknown Rx ALBUTEROL Inhaler (OR & NICU) 2 puff IH QID PRN #1 inhalation 08/30/18 Unknown Rx [ProAir HFA Inhaler] ALBUTEROL NEB's [Proventil 0.083% 2.5 mg IH Q4HRT PRN #30 nebu 08/30/18 Unknown Rx NEBS] Acetaminophen [Acetaminophen TAB] 325 mg PO Q6H PRN #14 tablet 08/30/18 Unknown Rx Budesonide/Formoterol Fumarate 2 gm IH BID #1 hfa.aer.ad 08/30/18 Unknown Rx [Symbicort 160-4.5 Mcg Inhaler] LORazepam [Ativan] 0.5 mg PO Q12H PRN #20 tablet 08/30/18 Unknown Rx Pantoprazole [Protonix TAB] 40 mg PO QDAY #14 tablet 08/30/18 Unknown Rx methylPREDNISolone [Medrol 4MG 1 dose PO DAILY #1 tab.ds.pk 08/30/18 Unknown Rx DOSEPAK (21 tabs)] Prednisone [predniSONE 10 mg 10 mg PO .TAPER #1 tab.ds.pk 09/04/18 Unknown Rx (6-Day Pack, 21 Tabs)] guaiFENesin/CODEINE [Robitussin AC] 10 ml PO TID PRN #100 ml 09/04/18 Unknown Rx levoFLOXacin [Levaquin TAB] 500 mg PO QDAY #7 tablet 09/04/18 Unknown Rx Naproxen [Naprosyn] 500 mg PO BID #20 tablet 12/24/18 Unknown Rx methOCARBAMOL [Robaxin TAB] 500 mg PO Q8HR PRN #20 tablet 12/24/18 Unknown Rx ED Physical Exam - General Limitations: No Limitations General appearance: alert, in no apparent distress - Head Head exam: Present: atraumatic, normocephalic - Eye Eye exam: Present: normal appearance, PERRL, EOMI - ENT ENT exam: Present: mucous membranes moist - Neck Neck exam: Present: normal inspection - Respiratory Respiratory exam: Present: normal lung sounds bilaterally. Absent: respiratory distress - Cardiovascular Cardiovascular Exam: Present: regular rate, normal rhythm - GI/Abdominal GI/Abdominal exam: Present: soft, tenderness (LUQ tenderness). Absent: distended - Extremities Exam Extremities exam: Present: normal inspection - Back Exam Back exam: Present: CVA tenderness (L). Absent: CVA tenderness (R) - Neurological Exam Neurological exam: Present: alert, oriented X3 - Psychiatric Psychiatric exam: Present: normal affect, normal mood - Skin Skin exam: Present: warm, dry, intact, normal color. Absent: rash ED Course Vital Signs 12/24/18 12/24/18 12/24/18 00:11 03:21 03:58 Temperature 97.5 F L 98.5 F Pulse Rate 100 H 81 Respiratory 18 20 20 Rate Blood Pressure 170/81 Blood Pressure 136/84 [Right] O2 Sat by Pulse 100 99 98 Oximetry ED Medical Decision Making - Lab Data Result diagrams: 12/24/18 00:26 12/24/18 00:26 - EKG Data -: EKG Interpreted by Me EKG shows normal: sinus rhythm, axis, intervals, QRS complexes, ST-T waves Rate: tachycardia (rate 111) - EKG Data Interpretation: no acute changes - Radiology Data Radiology results: report reviewed, image reviewed interpreted by me: CXR appears unremarkable - Medical Decision Making 43 yo F with left flank pain. Other than mild hypokalemia, labs are normal, including urine. CT scan shows no evidence of any acute abnormalities such as kidney stone, diverticulitis. Pt given IV fluids and toradol which seemed to provide some relief. Pt reports anxiety symptoms currently resolved. No neuro deficits on exam. Will discharge at this time. Outpt f/u advised. Return pre cautions given. - Differential Diagnosis kidney stone, pyelonephritis, anxiety, muscle strain Critical care attestation.: If time is entered above; I have spent that time in minutes in the direct care of this critically ill patient, excluding procedure time. ED Disposition Clinical Impression: Anxiety, Acute flank pain Disposition: TO HOME OR SELFCARE Is pt being admited?: No Condition: Stable Instructions: Flank Pain (ED), Anxiety (ED) Prescriptions: Naproxen [Naprosyn] 500 mg PO BID #20 tablet methOCARBAMOL [Robaxin TAB] 500 mg PO Q8HR PRN #20 tablet PRN Reason: Muscle Spasm Referrals: [facility] [Provider Group] - 3-5 Days PRIMARY [facility]ARE, [Primary Care Provider] - 3-5 Days Time of Disposition: 04:51
[2018-12-24 02:57] LABS: Bilirubin,Urine NEG (Negative); Blood,Urine NEG (Negative); Color,Urine Yellow (Yellow); Mucus,Urine FEW /HPF; Protein,Urine <15 mg/dL mg/dL (Negative); Urobilinogen,Urine < 2.0 mg/dL (<2.0)
--- NOTE | 2018-12-24 03:18 | Cat Scan Report ---
CT scan of the abdomen and pelvis without contrast INDICATION: left flank pain. TECHNIQUE: All CT scans at this location are performed using the following dose modulation technique: Automated exposure control. Helical slices were obtained through the abdomen and pelvis. No contrast is adminis tered. COMPARISON: None available. FINDINGS: Abdomen: Lung bases are clear. The liver, spleen, pancreas, adrenal glands, and kidneys are unremarka ble. There are small retroperitoneal nodes. These are not pathologically enlarged. Phleboliths are noted in the left ovarian vein there are no renal or ureteral calculi. Pelvis: The appendix is unremarkable. There is no inflammatory change. There are no abnormal collecti ons. Phleboliths are noted. There are small iliac chain nodes identified are nonspecific. On review of bone windows, no acute osseous abnormalities are seen. IMPRESSION: 1. There is no obstruction, inflammation, or free air. There are no abnormal fluid collections. 2. Small retroperitoneal and iliac chain nodes are somewhat increased in number but are not abnormall y enlarged. These are nonspecific. Signer Name: Frank Reid MD Signed: 12/24/2018 3:13 AM Workstation Name: [id number]
[2018-12-24] MEDS ORDERED: K-DUR PO ONE (03:52)
--- NOTE | 2018-12-24 04:01 | XRay Report ---
CHEST 1 VIEW INDICATION / CLINICAL INFORMATION: Chest Pain. COMPARISON: 12/05/2018 FINDINGS: SUPPORT DEVICES: None. HEART / MEDIASTINUM: No significant abnormality. LUNGS / PLEURA: No significant pulmonary or pleural abnormality.. No pneumothorax. ADDITIONAL FINDINGS: No significant additional findings. IMPRESSION: 1. No acute findings. Signer Name: Frank Reid MD Signed: 12/24/2018 3:57 AM Workstation Name: [id number]
[2018-12-24 06:00] VITALS: BP 149/90
== END 2018-12-24 06:01 | disposition home or self-care (01) ==
LOC: ED 23:49
DX: R10.12 Left upper quadrant pain (principal); F41.9 Anxiety disorder, unspecified; I10 Essential (primary) hypertension; M19.90 Unspecified osteoarthritis, unspecified site; J45.909 Unspecified asthma, uncomplicated; Z98.51 Tubal ligation status; G47.30 Sleep apnea, unspecified
CPT/HCPCS: 36415; 71045; 74176; 80048; 81001; 84484; 84703; 85025; 93005; 93010; 96374; 99285; J1885; J7030

== ENCOUNTER 2019-01-18 11:47 | Emergency (ER) | payer MEDICAID ==
[2019-01-18 12:09] VITALS: BP 123/85
--- NOTE | 2019-01-18 12:12 | Event Note ---
ED Screening Note Date of service: 01/18/19 Time: 12:09 ED Screening Note: 43 y/o female c/o laceration on her right foot last night. UTD TD This initial assessment/diagnostic orders/clinical plan/treatment(s) is/are subject to change based on patients health status, clinical progression and re- assessment by fellow clinical providers in the ED. Further treatment and workup at subsequent clinical providers discretion. Patient/guardian urged not to elope from the ED as their condition may be serious if not clinically assessed and managed. Initial orders include:
--- NOTE | 2019-01-18 13:08 | Emergency Department Report ---
<MEÑOROSI - Last Filed: 01/18/19 13:08> - General Chief Complaint: Laceration/Recheck/Suture Stated Complaint: CUT ON RT FOOT Time Seen by Provider: 01/18/19 12:07 - Related Data Previous Rx's Medication Instructions Recorded Last Taken Type Atenolol [Tenormin] 25 mg PO DAILY #30 tab 09/26/16 Unknown Rx Nitrofurantoin Monohyd/M-Cryst 100 mg PO BID 7 Days #14 capsule 06/06/18 Unknown Rx [Macrobid 100 mg Capsule] diphenhydrAMINE [Benadryl CAP] 25 mg PO Q8HR PRN #30 capsule 06/06/18 Unknown Rx ALBUTEROL Inhaler (OR & NICU) 2 puff IH QID PRN #1 inhalation 08/30/18 Unknown Rx [ProAir HFA Inhaler] ALBUTEROL NEB's [Proventil 0.083% 2.5 mg IH Q4HRT PRN #30 nebu 08/30/18 Unknown Rx NEBS] Acetaminophen [Acetaminophen TAB] 325 mg PO Q6H PRN #14 tablet 08/30/18 Unknown Rx Budesonide/Formoterol Fumarate 2 gm IH BID #1 hfa.aer.ad 08/30/18 Unknown Rx [Symbicort 160-4.5 Mcg Inhaler] LORazepam [Ativan] 0.5 mg PO Q12H PRN #20 tablet 08/30/18 Unknown Rx Pantoprazole [Protonix TAB] 40 mg PO QDAY #14 tablet 08/30/18 Unknown Rx methylPREDNISolone [Medrol 4MG 1 dose PO DAILY #1 tab.ds.pk 08/30/18 Unknown Rx DOSEPAK (21 tabs)] Prednisone [predniSONE 10 mg 10 mg PO .TAPER #1 tab.ds.pk 09/04/18 Unknown Rx (6-Day Pack, 21 Tabs)] guaiFENesin/CODEINE [Robitussin AC] 10 ml PO TID PRN #100 ml 09/04/18 Unknown Rx levoFLOXacin [Levaquin TAB] 500 mg PO QDAY #7 tablet 09/04/18 Unknown Rx Naproxen [Naprosyn] 500 mg PO BID #20 tablet 12/24/18 Unknown Rx methOCARBAMOL [Robaxin TAB] 500 mg PO Q8HR PRN #20 tablet 12/24/18 Unknown Rx cephALEXin [Keflex] 500 mg PO QID 7 Days #28 cap 01/18/19 Unknown Rx Allergies Allergy/AdvReac Type Severity Reaction Status Date / Time No Known Allergies Allergy Verified 06/06/18 15:55 ED Past Medical Hx - Medications Home Medications: Home Medications Medication Instructions Recorded Confirmed Last Taken Type Atenolol [Tenormin] 25 mg PO DAILY #30 tab 09/26/16 Unknown Rx Nitrofurantoin Monohyd/M-Cryst 100 mg PO BID 7 Days #14 capsule 06/06/18 Unknown Rx [Macrobid 100 mg Capsule] diphenhydrAMINE [Benadryl CAP] 25 mg PO Q8HR PRN #30 capsule 06/06/18 Unknown Rx ALBUTEROL Inhaler (OR & NICU) 2 puff IH QID PRN #1 inhalation 08/30/18 Unknown Rx [ProAir HFA Inhaler] ALBUTEROL NEB's [Proventil 0.083% 2.5 mg IH Q4HRT PRN #30 nebu 08/30/18 Unknown Rx NEBS] Acetaminophen [Acetaminophen TAB] 325 mg PO Q6H PRN #14 tablet 08/30/18 Unknown Rx Budesonide/Formoterol Fumarate 2 gm IH BID #1 hfa.aer.ad 08/30/18 Unknown Rx [Symbicort 160-4.5 Mcg Inhaler] LORazepam [Ativan] 0.5 mg PO Q12H PRN #20 tablet 08/30/18 Unknown Rx Pantoprazole [Protonix TAB] 40 mg PO QDAY #14 tablet 08/30/18 Unknown Rx methylPREDNISolone [Medrol 4MG 1 dose PO DAILY #1 tab.ds.pk 08/30/18 Unknown Rx DOSEPAK (21 tabs)] Prednisone [predniSONE 10 mg 10 mg PO .TAPER #1 tab.ds.pk 09/04/18 Unknown Rx (6-Day Pack, 21 Tabs)] guaiFENesin/CODEINE [Robitussin AC] 10 ml PO TID PRN #100 ml 09/04/18 Unknown Rx levoFLOXacin [Levaquin TAB] 500 mg PO QDAY #7 tablet 09/04/18 Unknown Rx Naproxen [Naprosyn] 500 mg PO BID #20 tablet 12/24/18 Unknown Rx methOCARBAMOL [Robaxin TAB] 500 mg PO Q8HR PRN #20 tablet 12/24/18 Unknown Rx cephALEXin [Keflex] 500 mg PO QID 7 Days #28 cap 01/18/19 Unknown Rx ED Medical Decision Making - Medical Decision Making I evaluated Ms. Rodgers alongside my colleague. She has a V-shaped 4 cm right superficial foot laceration at the mid dorsum foot. Subcutaneous tissues exposed without signs of infection. No bleeding. I recommended suture repair. However due to severe amount of anxiety and fear of needles, she did not allow or provide consent for laceration repair. We used Dermabond and tight bandages to approximate the skin. She understands that without suture repair there is a risk higher risk of infection and delayed wound healing is expected. She also explains that it is difficult to extend her right toe. She was able to extend passively without resistance at the right toe. Considering the location of injury, I do not suspect nerve transection or nerve injury. We have referred her to a abrasive wheel molder for further evaluation. ED Disposition Clinical Impression: Laceration of right foot Qualifiers: Encounter type: initial encounter Qualified Code(s): S91.311A - Laceration without foreign body, right foot, initial encounter Disposition: DC- TO HOME OR SELFCARE Condition: Stable Instructions: Laceration (ED), Skin Adhesive Care (ED) Additional Instructions: take medication as prescribed. keep area Clean, dry, covered. Current Steri- Strips in place for 2 days. may wash with soap and water and immediately dry. no hot tub, pool, soaking in water. may get more Steri-Strips [id number] to cover wound. Follow-up with a abrasive wheel molder in the next 2-3 days. Return to the emergency room for any new or worsening symptoms. Prescriptions: cephALEXin [Keflex] 500 mg PO QID 7 Days #28 cap Referrals: LEANNE JOSEPH DPM [Staff Physician] - 2-3 Days Print Language: ESTONIAN <KATHYA BARGER. - Last Filed: 01/18/19 14:44> - General Source: patient Mode of arrival: Ambulatory Limitations: No Limitations - History of Present Illness Initial Comments: Patient is a 43-year-old female presents emergency room with complaints of a laceration to the right dorsal foot that occurred around 11 PM last night. The patient states that she hit it against the glass on the floor but the glass did not break. she denies any pain in her foot and has been ambulatory. She states that she has had some difficulty extending the right big toe and discomfort in the foot when extending the toe. She has a past nuchal history of anxiety, hypertension, irregular heart beat. Denies any allergies medications. ED Review of Systems ROS: Stated complaint: CUT ON RT FOOT Other details as noted in HPI Comment: All other systems reviewed and negative ED Past Medical Hx - Past Medical History Previous Medical History?: Yes Hx Hypertension: Yes Hx Arthritis: Yes (BACK) Hx Asthma: Yes Additional medical history: Anxiety, Sleep Apnea - Surgical History Past Surgical History?: Yes Hx Breast Surgery: (breast reduction) Additional Surgical History: tubal ligation - Social History Smoking Status: Never Smoker Substance Use Type: None ED Physical Exam - General Limitations: No Limitations General appearance: alert, in no apparent distress - Head Head exam: Present: atraumatic, normocephalic - Eye Eye exam: Present: normal appearance - ENT ENT exam: Present: mucous membranes moist - Neurological Exam Neurological exam: Present: alert, oriented X3 - Psychiatric Psychiatric exam: Present: normal affect, normal mood - Skin Skin exam: Present: warm, dry, other (4 cm laceration in a v-shape to the right dorsal foot, flap is present, no active bleeding, no TTP of the right foot, no TTP of the right toes, 2+ distal pulses, sensation intact, pt has some difficulty extending the right big toe fully but is still able to flex and extend the big toe, no obvious deformity, laceration appears supericial, no foreign body, no tendon involvement) ED Course Vital Signs 01/18/19 12:07 Temperature 98.4 F Pulse Rate 90 Respiratory 16 Rate Blood Pressure 123/85 O2 Sat by Pulse 98 Oximetry - Laceration /Wound Repair Right Dorsal Foot Wound Location: lower extremity (right dorsal foot) Wound Length (cm): 4 (v-shaped) Wound's Depth, Shape: flap Wound Explored: no foreign body removed Irrigated w/ Saline (ccs): 40 Betadine Prep?: Yes Wound Debrided: minimal Wound Repaired With: Steri-strips, Dermabond Sterile Dressing Applied?: Yes Progress: area irrigated with saline, no foreign body present, no tendon involvement, appears superficial only through the dermis and epidermis, cleaned thoroughly with betadine, dermabond used for skin adhesive and sterile strips placed, there is some wound approximation but not completely approximated, sterile dressing applied, no bleeding at all present, pt tolerated well, no complications ED Medical Decision Making - Radiology Data Radiology results: report reviewed Ordering Physician: Rosi Edwards MD Date of Service: 01/18/19 Procedure(s): XR foot 3+V RT Accession Number(s): [id number] cc: Rosi Edwards MD Fluoro Time In Minutes: RIGHT FOOT, 3 VIEWS INDICATION: laceration. COMPARISON: None. IMPRESSION: Soft tissue laceration on the dorsum of the foot is identified. No radiopaque foreign body, bony injury or joint pathology is detected. No significant DJD. Signer Name: Reji Rodriguez Jr, MD Signed: 01/18/2019 1:27 PM Workstation Name: [id number] Transcribed By: TTR Dictated By: REJI RODRIGUEZ JR, MD Electronically Authenticated By: REJI RODRIGUEZ JR, MD Signed Date/Time: 01/18/19 1327 - Medical Decision Making Patient is a 43-year-old female presents emergency room with complaints of a laceration to the right dorsal foot that occurred around 11 PM last night. The patient states that she hit it against the glass on the floor but the glass did not break. she denies any pain in her foot and has been ambulatory. She states that she has had some difficulty extending the right big toe and discomfort in the foot when extending the toe. She has a past nuchal history of anxiety, hypertension, irregular heart beat. Denies any allergies medications. vitals are normal. on exam: 4 cm laceration in a v-shape to the right dorsal foot, flap is present, no active bleeding, no TTP of the right foot, no TTP of the right toes, 2+ distal pulses, sensation intact, pt has some difficulty extending the right big toe fully but is still able to flex and extend the big toe, no obvious deformity, laceration appears supericial, no foreign body, no tendon involvement. wound appears superficial, unlikely to have nerve disruption, will have pt follow up with podiatry. XR of the right foot: Soft tissue laceration on the dorsum of the foot is identified. No radiopaque foreign body, bony injury or joint pathology is detected. No significant DJD. discussed with pt that wound would need to be closed with sutures, she states that she has anxiety and does not want suture repair. discussed with pt that wound healing and cosmetic would be better with sutures, she still elected to decline suture repair. wound irrigated with saline and thoroughly cleaned with betadine. placed dermabond and steri strips with some approximation of the skin. Patient placed on antibiotics due to delayed closure of her laceration. Advised patient take medication as prescribed. keep area Clean, dry, covered. Current Steri-Strips in place for 2 days. may wash with soap and water and immediately dry. no hot tub, pool, soaking in water. may get more Steri-Strips [id number] to cover wound. Follow-up with a abrasive wheel molder in the next 2-3 days. Return to the emergency room for any new or worsening symptoms. Critical care attestation.: If time is entered above; I have spent that time in minutes in the direct care of this critically ill patient, excluding procedure time. ED Disposition Is pt being admited?: No Does the pt Need Aspirin: No Time of Disposition: 13:39
--- NOTE | 2019-01-18 13:32 | XRay Report ---
RIGHT FOOT, 3 VIEWS INDICATION: laceration. COMPARISON: None. IMPRESSION: Soft tissue laceration on the dorsum of the foot is identified. No radiopaque foreign krystina dy, bony injury or joint pathology is detected. No significant DJD. Signer Name: Reji Rodriguez Jr, MD Signed: 01/18/2019 1:27 PM Workstation Name: [id number]
== END 2019-01-18 14:11 | disposition home or self-care (01) ==
LOC: ED 11:47
DX: S91.311A Laceration without foreign body, right foot, initial encounter (principal); I10 Essential (primary) hypertension; M19.90 Unspecified osteoarthritis, unspecified site; J45.909 Unspecified asthma, uncomplicated; F41.9 Anxiety disorder, unspecified; G47.30 Sleep apnea, unspecified; Z98.51 Tubal ligation status; W25.XXXA Contact with sharp glass, initial encounter; Y93.89 Activity, other specified; Y92.89 Other specified places as the place of occurrence of the external cause; Y99.8 Other external cause status

== ENCOUNTER 2019-01-29 12:36 | Emergency (ER) | payer MEDICAID ==
--- NOTE | 2019-01-29 13:08 | Emergency Department Report ---
Blank Doc - Documentation Documentation: 43-year-old female that presents with pressure in her chest. Denies any SOB. This initial assessment/diagnostic orders/clinical plan/treatment(s) is/are subject to change based on patient's health status, clinical progression and re- assessment by fellow clinical providers in the ED. Further treatment and workup at subsequent clinical providers discretion. Patient/guardians urged not to elope from the ED as their condition may be serious if not clinically assessed and managed. Initial orders include: 1- Patient sent to [facility] for further evaluation and treatment 2- labs 3- EKG 4- cXR
[2019-01-29 14:28] LABS: Basophils % (Auto) 0.7 % (0.0-1.8); Eosinophils # (Auto) 0.1 K/mm3 (0.0-0.4); Eosinophils % (Auto) 1.7 % (0.0-4.3); Hematocrit 35.3 % (30.3-42.9); Hemoglobin 11.2 gm/dl (10.1-14.3); Lymphocytes % (Auto) 28.1 % (13.4-35.0); Mean Corpuscular HGB Conc 32 % (30-34); Mean Corpuscular Volume 70 fl (79-97); Monocytes # (Auto) 0.5 K/mm3 (0.0-0.8); Monocytes % (Auto) 7.3 % (0.0-7.3); Platelet Count 256 K/mm3 (140-440); Red Blood Count 5.04 M/mm3 (3.65-5.03)
[2019-01-29 14:52] LABS: Alanine Aminotransferase 17 units/L (7-56); Albumin 4.6 g/dL (3.9-5); BUN/Creatinine Ratio 13; Blood Urea Nitrogen 9 mg/dL (7-17); Calcium 9.7 mg/dL (8.4-10.2); Hemolysis Index 0
--- NOTE | 2019-01-29 15:35 | XRay Report ---
CHEST 2 VIEWS INDICATION: Chest Pain. COMPARISON: 12/24/2018 FINDINGS: Support devices: None. Heart: Within normal limits. Pulmonary vasculature: Normal. Lungs/pleura: Normally expanded and clear lungs. No pleural effusion. No pneumothorax. Additional findings: Degenerative change in the spine.. IMPRESSION: 1. No acute cardiopulmonary process. Signer Name: Blake Prado MD Signed: 01/29/2019 3:31 PM Workstation Name: [id number]
[2019-01-29] MEDS ORDERED: DECADRON IM ONE (15:46)
[2019-01-29] MEDS ORDERED: ATIVAN PO ONE (15:46)
[2019-01-29] MEDS ORDERED: K-DUR PO ONE (15:47)
[2019-01-29] MEDS ORDERED: ATROVENT IH ONE ×2 (16:51→16:56)
[2019-01-29] MEDS ORDERED: LEVALBUTEROL IH ONE (16:52)
[2019-01-29] MEDS ORDERED: XOPENEX IH ONE (16:55)
[2019-01-29] MEDS ORDERED: ATIVAN IV ONE (17:19)
[2019-01-29] MEDS ORDERED: PEPCID IV ONE (17:19)
--- NOTE | 2019-01-29 17:27 | Emergency Department Report ---
<DRU RUIZ - Last Filed: 01/29/19 17:38> ED Shortness of Breath HPI - General Chief Complaint: Dyspnea/Respdistress Stated Complaint: AIR WAY BLOCKED Time Seen by Provider: 01/29/19 13:07 Source: patient, police, old records reviewed (pt has been seen here in the past for cp and palpitations as well as asthma. last admission 08/27) Mode of arrival: Ambulatory Limitations: No Limitations - History of Present Illness Initial Comments: 43-year-old female with a past medical history of asthma, anxiety, sleep apnea, and hypertension presents to the hospital with complaints of intermittent episodes of shortness of breath, chest pain, throat tightness, and palpitations. Patient states that episodes occur both while awake and while sleeping. Patient has been compliant with her CPAP machine and episodes occur despite usi ng the machine. She will wake up in the night feeling like her throat is close off at her tongue is swollen. She wouldn't develop some chest tightness, burning pressure across her chest, palpitations, and occasional wheezing. Patient states she has had intermittent throat tightness feeling in the past that improved with a bronchodilator inhaler. The last 3-4 days she is having recurrent episodes and frequent episodes. 4 days ago her doctor encouraged her to start taking her fluoxetine daily. He has been prescribed Ayana the patient did not take the medication. In the past she has been on Ativan 0.5 mg every 12 and typically would take half a tablet as needed. She denies history of PE/DVT, calf tenderness, leg edema, recent travel, or hormone replacement therapy. She denies cough or cold symptoms or fever. - Related Data Previous Rx's Medication Instructions Recorded Last Taken Type Atenolol [Tenormin] 25 mg PO DAILY #30 tab 09/26/16 Unknown Rx Nitrofurantoin Monohyd/M-Cryst 100 mg PO BID 7 Days #14 capsule 06/06/18 Unknown Rx [Macrobid 100 mg Capsule] diphenhydrAMINE [Benadryl CAP] 25 mg PO Q8HR PRN #30 capsule 06/06/18 Unknown Rx ALBUTEROL Inhaler (OR & NICU) 2 puff IH QID PRN #1 inhalation 08/30/18 Unknown Rx [ProAir HFA Inhaler] ALBUTEROL NEB's [Proventil 0.083% 2.5 mg IH Q4HRT PRN #30 nebu 08/30/18 Unknown Rx NEBS] Acetaminophen [Acetaminophen TAB] 325 mg PO Q6H PRN #14 tablet 08/30/18 Unknown Rx Budesonide/Formoterol Fumarate 2 gm IH BID #1 hfa.aer.ad 08/30/18 Unknown Rx [Symbicort 160-4.5 Mcg Inhaler] LORazepam [Ativan] 0.5 mg PO Q12H PRN #20 tablet 08/30/18 Unknown Rx Pantoprazole [Protonix TAB] 40 mg PO QDAY #14 tablet 08/30/18 Unknown Rx methylPREDNISolone [Medrol 4MG 1 dose PO DAILY #1 tab.ds.pk 08/30/18 Unknown Rx DOSEPAK (21 tabs)] Prednisone [predniSONE 10 mg 10 mg PO .TAPER #1 tab.ds.pk 09/04/18 Unknown Rx (6-Day Pack, 21 Tabs)] guaiFENesin/CODEINE [Robitussin AC] 10 ml PO TID PRN #100 ml 09/04/18 Unknown Rx levoFLOXacin [Levaquin TAB] 500 mg PO QDAY #7 tablet 09/04/18 Unknown Rx Naproxen [Naprosyn] 500 mg PO BID #20 tablet 12/24/18 Unknown Rx methOCARBAMOL [Robaxin TAB] 500 mg PO Q8HR PRN #20 tablet 12/24/18 Unknown Rx cephALEXin [Keflex] 500 mg PO QID 7 Days #28 cap 01/18/19 Unknown Rx Pantoprazole [Protonix] 40 mg PO QDAY #30 tablet 01/29/19 Unknown Rx diazePAM TAB [Valium] 5 mg PO TID PRN #12 tablet 01/29/19 Unknown Rx Allergies Allergy/AdvReac Type Severity Reaction Status Date / Time No Known Allergies Allergy Verified 06/06/18 15:55 ED Review of Systems Comment: All other systems reviewed and negative ED Past Medical Hx - Past Medical History Previous Medical History?: Yes Hx Hypertension: Yes Hx CVA: No Hx Heart Attack/AMI: No Hx Congestive Heart Failure: No Hx Diabetes: No Hx Deep Vein Thrombosis: No Hx Pulmonary Embolism: No Hx GERD: No Hx Liver Disease: No Hx Renal Disease: No Hx of Cancer: No Hx Sickle Cell Disease: No Hx Arthritis: Yes (BACK) Hx Headaches / Migraines: No Hx Seizures: No Hx Kidney Stones: No Hx Psychiatric Treatment: No Hx Asthma: Yes Hx COPD: No Hx Tuberculosis: No Hx Dementia: No Hx HIV: No Additional medical history: Anxiety, Sleep Apnea - Surgical History Past Surgical History?: Yes Hx Coronary Stent: No Hx Open Heart Surgery: No Hx Pacemaker: No Hx Internal Defibrillator: No Hx Cholecystectomy: No Hx Appendectomy: No Hx Breast Surgery: Yes (breast reduction) Additional Surgical History: tubal ligation - Social History Smoking Status: Never Smoker Substance Use Type: Alcohol - Medications Home Medications: Home Medications Medication Instructions Recorded Confirmed Last Taken Type Atenolol [Tenormin] 25 mg PO DAILY #30 tab 09/26/16 Unknown Rx Nitrofurantoin Monohyd/M-Cryst 100 mg PO BID 7 Days #14 capsule 06/06/18 Unknown Rx [Macrobid 100 mg Capsule] diphenhydrAMINE [Benadryl CAP] 25 mg PO Q8HR PRN #30 capsule 06/06/18 Unknown Rx ALBUTEROL Inhaler (OR & NICU) 2 puff IH QID PRN #1 inhalation 08/30/18 Unknown Rx [ProAir HFA Inhaler] ALBUTEROL NEB's [Proventil 0.083% 2.5 mg IH Q4HRT PRN #30 nebu 08/30/18 Unknown Rx NEBS] Acetaminophen [Acetaminophen TAB] 325 mg PO Q6H PRN #14 tablet 08/30/18 Unknown Rx Budesonide/Formoterol Fumarate 2 gm IH BID #1 hfa.aer.ad 08/30/18 Unknown Rx [Symbicort 160-4.5 Mcg Inhaler] LORazepam [Ativan] 0.5 mg PO Q12H PRN #20 tablet 08/30/18 Unknown Rx Pantoprazole [Protonix TAB] 40 mg PO QDAY #14 tablet 08/30/18 Unknown Rx methylPREDNISolone [Medrol 4MG 1 dose PO DAILY #1 tab.ds.pk 08/30/18 Unknown Rx DOSEPAK (21 tabs)] Prednisone [predniSONE 10 mg 10 mg PO .TAPER #1 tab.ds.pk 09/04/18 Unknown Rx (6-Day Pack, 21 Tabs)] guaiFENesin/CODEINE [Robitussin AC] 10 ml PO TID PRN #100 ml 09/04/18 Unknown Rx levoFLOXacin [Levaquin TAB] 500 mg PO QDAY #7 tablet 09/04/18 Unknown Rx Naproxen [Naprosyn] 500 mg PO BID #20 tablet 12/24/18 Unknown Rx methOCARBAMOL [Robaxin TAB] 500 mg PO Q8HR PRN #20 tablet 12/24/18 Unknown Rx cephALEXin [Keflex] 500 mg PO QID 7 Days #28 cap 01/18/19 Unknown Rx Pantoprazole [Protonix] 40 mg PO QDAY #30 tablet 01/29/19 Unknown Rx diazePAM TAB [Valium] 5 mg PO TID PRN #12 tablet 01/29/19 Unknown Rx ED Physical Exam - General Limitations: No Limitations - Other Other exam information: Gen.: No acute distress Head: Atraumatic Eyes: Normal appearance ENT: Moist mucous membranes, posterior pharyngeal normal Neck: Normal appearance, no posterior midline tenderness, no meningismus, no stridor, no thyromegaly, no hoarseness Chest: Clear to auscultation bilaterally Cardiovascular: Regular rate and rhythm Abdomen: Normal appearance, soft, nontender, no rebound or guarding, normal bowel sounds Back: Normal appearance, nontender Extremity: Full range of motion, normal appearance Neuro: Alert, clear speech, no focal motor or sensory deficit Psychiatric: Appropriate Skin: No rash ED Course - Reevaluation(s) Reevaluation #1: 01/29/19 17:23 i was initially informed that the patient see Decadron and Ativan she is right home. I was called to the room about 5 p.m. Upon my arrival patient is tachypnea, having difficulty speaking, have a diminished breath sounds with mild wheezing. Heart rate increased to the 120s. O2 sat 100% and positive tachypnea. Patient was coached to decrease her breathing. Heart rate decreased to mid to high 90s prior to initiation of neb treatment. During initiation of Xopenex and Atrovent patient's heart rate was in the 60s. She still had difficulty talking, complaining of chest tightness, and burning sensation across her chest. Patient continues to complain of the burning but is breathing more comfortably after treatment. IV initiated. Repeat troponin pending. 01/29/19 17:37 I am suspicious of patient is having anxiety attack and possible asthma exacerbation. Additional Ativan IV ordered. CT neck and chest ordered. Patient will be signed out to all, provided to follow-up results and discussed with hospitalist for possible admission if abnormality or significant symptoms continue. ED Medical Decision Making - Lab Data Result diagrams: 01/29/19 13:35 01/29/19 13:35 Lab Results 01/29/19 01/29/19 01/29/19 Range/Units 13:35 13:35 13:35 WBC 7.3 (4.5-11.0) K/mm3 RBC 5.04 H (3.65-5.03) M/mm3 Hgb 11.2 (10.1-14.3) gm/dl Hct 35.3 (30.3-42.9) % MCV 70 L (79-97) fl MCH 22 L (28-32) pg MCHC 32 (30-34) % RDW 14.0 (13.2-15.2) % Plt Count 256 (140-440) K/mm3 Lymph % (Auto) 28.1 (13.4-35.0) % [place] % (Auto) 7.3 (0.0-7.3) % Eos % (Auto) 1.7 (0.0-4.3) % Baso % (Auto) 0.7 (0.0-1.8) % Lymph # 2.0 (1.2-5.4) K/mm3 [place] # 0.5 (0.0-0.8) K/mm3 Eos # 0.1 (0.0-0.4) K/mm3 Baso # 0.0 (0.0-0.1) K/mm3 Seg Neutrophils % 62.2 (40.0-70.0) % Seg Neutrophils # 4.5 (1.8-7.7) K/mm3 Sodium 140 (137-145) mmol/L Potassium 3.3 L (3.6-5.0) mmol/L Chloride 102.2 (98-107) mmol/L Carbon Dioxide 23 (22-30) mmol/L Anion Gap 18 mmol/L BUN 9 (7-17) mg/dL Creatinine 0.7 (0.7-1.2) mg/dL Estimated GFR > 60 ml/min BUN/Creatinine Ratio 13 % Glucose 109 H (65-100) mg/dL Calcium 9.7 (8.4-10.2) mg/dL Total Bilirubin 0.60 (0.1-1.2) mg/dL AST 17 (5-40) units/L ALT 17 (7-56) units/L Alkaline Phosphatase 71 (35-129) units/L Troponin T < 0.010 (0.00-0.029) ng/mL Total Protein 8.1 (6.3-8.2) g/dL Albumin 4.6 (3.9-5) g/dL Albumin/Globulin Ratio 1.3 % HCG, Qual Negative (Negative) - EKG Data -: EKG Interpreted by Me EKG shows normal: sinus rhythm, ST-T waves (no stemi) Rate: normal (75) - EKG Data When compared to previous EKG there are: no significant change - Radiology Data Radiology results: report reviewed CHEST 2 VIEWS INDICATION: Chest Pain. COMPARISON: 12/24/2018 FINDINGS: Support devices: None. Heart: Within normal limits. Pulmonary vasculature: Normal. Lungs/pleura: Normally expanded and clear lungs. No pleural effusion. No pneumothorax. Additional findings: Degenerative change in the spine.. IMPRESSION: 1. No acute cardiopulmonary process. - Differential Diagnosis anxiety, asthma exacerbation, vocal cord paralysis, bronchospasm Critical Care Time: No ED Disposition Clinical Impression: GERD (gastroesophageal reflux disease), Spasm of throat Disposition: DC-01 TO HOME OR SELFCARE Condition: Stable Instructions: Gastroesophageal Reflux Disease (ED) Referrals: PRIMARY CARE, [Primary Care Provider] - 3-5 Days <ROSHNI WILDER - Last Filed: 01/29/19 20:45> ED Review of Systems ROS: Stated complaint: AIR WAY BLOCKED Other details as noted in HPI ED Course Vital Signs 01/29/19 01/29/19 01/29/19 12:50 17:00 17:27 Temperature 98.9 F 98.8 F Pulse Rate 91 H 93 H Pulse Rate [ 75 Posterior Bilateral Throughout] Respiratory 16 18 Rate Respiratory 20 Rate [Posterior Bilateral Throughout] Blood Pressure 140/87 Blood Pressure 160/94 [Right] O2 Sat by Pulse 98 99 Oximetry ED Medical Decision Making - Lab Data Result diagrams: 01/29/19 13:35 01/29/19 13:35 - Radiology Data CT of the neck and chest show no airway obstruction or space occupying lesions - Medical Decision Making Patient is a 43-year-old female who is presenting with episodes of not being able to breathe having pain in the neck area. Patient is calm and sleeping on my exam. Patient states she is feeling better after the medications were given by Dr. Anderson. Patient will be started on Valium and Protonix and will be given ear nose and throat and GI follow-up. Critical care attestation.: If time is entered above; I have spent that time in minutes in the direct care of this critically ill patient, excluding procedure time. ED Disposition Is pt being admited?: No Does the pt Need Aspirin: No Time of Disposition: 20:43
--- NOTE | 2019-01-29 19:14 | Cat Scan Report ---
CT NECK WITHOUT CONTRAST HISTORY: Intermittent throat tightness and shortness of breath. COMPARISON: None. TECHNIQUE: Routine CT of the neck is performed without the use of intravenous contrast. CONTRAST: None. FINDINGS: Skull Base: No significant abnormality. Parotid, Carotid, Retropharyngeal, Prevertebral, Pharyngeal Mucosal, and Negative Developer Spaces: No distin ct abnormal mass. Airway: Patent and without significant abnormality. Lymphatics: No lymphadenopathy. Vasculature: No significant abnormality allowing for lack of intravenous contrast. Osseous Structures: No aggressive appearing bone lesions. There are multiple dental caries with moder ate periodontal disease involving the left first maxillary molar. Additional findings: None. IMPRESSION: 1. No significant airway narrowing identified in the neck. No evidence of epiglottitis or laryngeal n arrowing. Signer Name: Flynn Sharp MD Signed: 01/29/2019 7:10 PM Workstation Name: [id number]
--- NOTE | 2019-01-29 19:28 | Cat Scan Report ---
CT chest wo con INDICATION: intermittent throat tightness sob. TECHNIQUE: All CT scans at this location are performed using the following dose modulation technique: Automated exposure control. Helical slices were obtained through the chest. COMPARISON: CT scan of the abdomen and pelvis dated 12/24/2018 FINDINGS: Chest: The lungs are clear. The pleura is unremarkable. Heart size is normal. There is no adenopathy. The thoracic aorta is normal in diameter. There is no pneumothorax. On review of bone windows, no acute osseous abnormality is seen. IMPRESSION: 1. No acute abnormality is seen in the chest. There is no pneumothorax. The lungs are clear. Signer Name: Frank Reid MD Signed: 01/29/2019 7:24 PM Workstation Name: [id number]
[2019-01-29 21:28] VITALS: BP 133/78
== END 2019-01-29 21:00 | disposition home or self-care (01) ==
LOC: ED 12:36
DX: K21.9 Gastro-esophageal reflux disease without esophagitis (principal); J39.2 Other diseases of pharynx; I10 Essential (primary) hypertension; M19.90 Unspecified osteoarthritis, unspecified site; F41.9 Anxiety disorder, unspecified; Z98.890 Other specified postprocedural states; Z98.51 Tubal ligation status; Z79.899 Other long term (current) drug therapy
CPT/HCPCS: 36415; 70490; 71046; 71250; 80053; 84484; 84703; 85025; 93005; 93010; 94640; 96372; 96374; 96375; 99285; J1100; J2060; 94644

== ENCOUNTER 2019-05-02 00:51 | Emergency (ER) | payer MEDICAID ==
[2019-05-02 01:42] LABS: Basophils # (Auto) 0.1 K/mm3 (0.0-0.1); Basophils % (Auto) 0.6 % (0.0-1.8); Eosinophils # (Auto) 0.3 K/mm3 (0.0-0.4); Eosinophils % (Auto) 3.6 % (0.0-4.3); Hematocrit 39.7 % (30.3-42.9); Hemoglobin 12.7 gm/dl (10.1-14.3); Lymphocytes # (Auto) 2.8 K/mm3 (1.2-5.4); Lymphocytes % (Auto) 35.4 % (13.4-35.0); Mean Corpuscular HGB Conc 32 % (30-34); Mean Corpuscular Volume 71 fl (79-97); Monocytes # (Auto) 0.4 K/mm3 (0.0-0.8); Monocytes % (Auto) 4.4 % (0.0-7.3); Platelet Count 325 K/mm3 (140-440); Red Blood Count 5.59 M/mm3 (3.65-5.03); Red Cell Distribution Width 14.6 % (13.2-15.2)
--- NOTE | 2019-05-02 01:44 | XRay Report ---
CHEST PA AND LATERAL VIEWS INDICATION: Dysrhythmia. COMPARISON: 04/09/2019 FINDINGS: Support devices: None. Heart: Within normal limits. Lungs/Pleura: No acute pulmonary or pleural findings. IMPRESSION: 1. No acute findings. Signer Name: Jameson Covarrubias MD Signed: 05/02/2019 1:39 AM Workstation Name: [id number]
[2019-05-02 02:06] LABS: Alanine Aminotransferase 28 units/L (7-56); Albumin 4.5 g/dL (3.9-5); BUN/Creatinine Ratio 12; Blood Urea Nitrogen 7 mg/dL (7-17); Calcium 9.6 mg/dL (8.4-10.2); Hemolysis Index 3
--- NOTE | 2019-05-02 02:36 | Emergency Department Report ---
ED Palpitations HPI - General Chief Complaint: Arrhythmia/Palpitations Stated Complaint: FAST HEART RATE SOB Time Seen by Provider: 05/02/19 02:27 Source: patient Mode of arrival: Ambulatory Limitations: No Limitations - History of Present Illness Initial Comments: Patient is a 44-year-old female that presents emergency room with complaints of shortness of breath and palpitations. Patient also states she feels like her heart is racing. Patient states she does have a history of anxiety. Patient states that the symptoms do make her more anxious. Patient states that her symptoms have improved since being in the hospital. Patient states her symptoms been going on for 2 weeks. Patient denies chest pain. Patient denies fever and chills. Patient denies abdominal pain. 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 MD Complaint: rapid heart beat, "heart racing", palpitations -: Sudden, week(s) Context: occured during rest, occured during exertion Associated Symptoms: shortness of breath, anxiety. denies: chest pain, syncope, near-syncope, nausea/vomiting, diaphoresis, cough, parasthesias, feeling of impending doom, muscle cramps - Related Data Previous Rx's Medication Instructions Recorded Last Taken Type atenoloL [Tenormin] 25 mg PO DAILY #30 tab 09/26/16 Unknown Rx Nitrofurantoin Monohyd/M-Cryst 100 mg PO BID 7 Days #14 capsule 06/06/18 Unknown Rx [Macrobid 100 mg Capsule] diphenhydrAMINE [Benadryl CAP] 25 mg PO Q8HR PRN #30 capsule 06/06/18 Unknown Rx ALBUTEROL NEB's [Proventil 0.083% 2.5 mg IH Q4HRT PRN #30 nebu 08/30/18 Unknown Rx NEBS] Acetaminophen [Acetaminophen TAB] 325 mg PO Q6H PRN #14 tablet 08/30/18 Unknown Rx Albuterol INH(or & Nicu Only) 2 puff IH QID PRN #1 inhalation 08/30/18 Unknown Rx [ProAir HFA Inhaler] Budesonide/Formoterol Fumarate 2 gm IH BID #1 hfa.aer.ad 08/30/18 Unknown Rx [Symbicort 160-4.5 Mcg Inhaler] LORazepam [Ativan] 0.5 mg PO Q12H PRN #20 tablet 08/30/18 Unknown Rx Pantoprazole [Protonix TAB] 40 mg PO QDAY #14 tablet 08/30/18 Unknown Rx methylPREDNISolone [Medrol 4MG 1 dose PO DAILY #1 tab.ds.pk 08/30/18 Unknown Rx DOSEPAK (21 tabs)] Prednisone [predniSONE 10 mg 10 mg PO .TAPER #1 tab.ds.pk 09/04/18 Unknown Rx (6-Day Pack, 21 Tabs)] guaiFENesin/CODEINE [Robitussin AC] 10 ml PO TID PRN #100 ml 09/04/18 Unknown Rx levoFLOXacin [Levaquin TAB] 500 mg PO QDAY #7 tablet 09/04/18 Unknown Rx Naproxen [Naprosyn] 500 mg PO BID #20 tablet 12/24/18 Unknown Rx methOCARBAMOL [Robaxin TAB] 500 mg PO Q8HR PRN #20 tablet 12/24/18 Unknown Rx cephALEXin [Keflex] 500 mg PO QID 7 Days #28 cap 01/18/19 Unknown Rx Pantoprazole [Protonix] 40 mg PO QDAY #30 tablet 01/29/19 Unknown Rx diazePAM TAB [Valium] 5 mg PO TID PRN #12 tablet 01/29/19 Unknown Rx ALPRAZolam [Xanax TAB] 0.25 mg PO TID PRN #6 tab 04/10/19 Unknown Rx ALPRAZolam [Xanax TAB] 0.5 mg PO BID PRN #8 tab 05/02/19 Unknown Rx Allergies Allergy/AdvReac Type Severity Reaction Status Date / Time No Known Allergies Allergy Verified 06/06/18 15:55 ED Review of Systems ROS: Stated complaint: FAST HEART RATE SOB Other details as noted in HPI Constitutional: denies: chills, fever Eyes: denies: eye pain, eye discharge, vision change ENT: denies: ear pain, throat pain Respiratory: shortness of breath. denies: cough, wheezing Cardiovascular: palpitations. denies: chest pain Endocrine: no symptoms reported Gastrointestinal: denies: abdominal pain, nausea, diarrhea Genitourinary: denies: urgency, dysuria, discharge Musculoskeletal: denies: back pain, joint swelling, arthralgia Skin: denies: rash, lesions Neurological: denies: headache, weakness, paresthesias Psychiatric: anxiety. denies: depression Hematological/Lymphatic: denies: easy bleeding, easy bruising ED Past Medical Hx - Past Medical History Previous Medical History?: Yes Hx Hypertension: Yes Hx CVA: No Hx Heart Attack/AMI: No Hx Congestive Heart Failure: No Hx Diabetes: No Hx Deep Vein Thrombosis: No Hx Pulmonary Embolism: No Hx GERD: No Hx Liver Disease: No Hx Renal Disease: No Hx Sickle Cell Disease: No Hx Arthritis: Yes (BACK) Hx Headaches / Migraines: No Hx Seizures: No Hx Kidney Stones: No Hx Psychiatric Treatment: No Hx Asthma: Yes Hx COPD: No Hx Tuberculosis: No Hx Dementia: No Hx HIV: No Additional medical history: Anxiety, Sleep Apnea - Surgical History Past Surgical History?: Yes Hx Coronary Stent: No Hx Open Heart Surgery: No Hx Pacemaker: No Hx Internal Defibrillator: No Hx Cholecystectomy: No Hx Appendectomy: No Hx Breast Surgery: Yes (breast reduction) Additional Surgical History: tubal ligation - Family History Family history: no significant - Social History Smoking Status: Never Smoker Substance Use Type: Alcohol - Medications Home Medications: Home Medications Medication Instructions Recorded Confirmed Last Taken Type atenoloL [Tenormin] 25 mg PO DAILY #30 tab 09/26/16 Unknown Rx Nitrofurantoin Monohyd/M-Cryst 100 mg PO BID 7 Days #14 capsule 06/06/18 Unknown Rx [Macrobid 100 mg Capsule] diphenhydrAMINE [Benadryl CAP] 25 mg PO Q8HR PRN #30 capsule 06/06/18 Unknown Rx ALBUTEROL NEB's [Proventil 0.083% 2.5 mg IH Q4HRT PRN #30 nebu 08/30/18 Unknown Rx NEBS] Acetaminophen [Acetaminophen TAB] 325 mg PO Q6H PRN #14 tablet 08/30/18 Unknown Rx Albuterol INH(or & Nicu Only) 2 puff IH QID PRN #1 inhalation 08/30/18 Unknown Rx [ProAir HFA Inhaler] Budesonide/Formoterol Fumarate 2 gm IH BID #1 hfa.aer.ad 08/30/18 Unknown Rx [Symbicort 160-4.5 Mcg Inhaler] LORazepam [Ativan] 0.5 mg PO Q12H PRN #20 tablet 08/30/18 Unknown Rx Pantoprazole [Protonix TAB] 40 mg PO QDAY #14 tablet 08/30/18 Unknown Rx methylPREDNISolone [Medrol 4MG 1 dose PO DAILY #1 tab.ds.pk 08/30/18 Unknown Rx DOSEPAK (21 tabs)] Prednisone [predniSONE 10 mg 10 mg PO .TAPER #1 tab.ds.pk 09/04/18 Unknown Rx (6-Day Pack, 21 Tabs)] guaiFENesin/CODEINE [Robitussin AC] 10 ml PO TID PRN #100 ml 09/04/18 Unknown Rx levoFLOXacin [Levaquin TAB] 500 mg PO QDAY #7 tablet 09/04/18 Unknown Rx Naproxen [Naprosyn] 500 mg PO BID #20 tablet 12/24/18 Unknown Rx methOCARBAMOL [Robaxin TAB] 500 mg PO Q8HR PRN #20 tablet 12/24/18 Unknown Rx cephALEXin [Keflex] 500 mg PO QID 7 Days #28 cap 01/18/19 Unknown Rx Pantoprazole [Protonix] 40 mg PO QDAY #30 tablet 01/29/19 Unknown Rx diazePAM TAB [Valium] 5 mg PO TID PRN #12 tablet 01/29/19 Unknown Rx ALPRAZolam [Xanax TAB] 0.25 mg PO TID PRN #6 tab 04/10/19 Unknown Rx ALPRAZolam [Xanax TAB] 0.5 mg PO BID PRN #8 tab 05/02/19 Unknown Rx ED Physical Exam - General Limitations: No Limitations General appearance: alert, in no apparent distress - Head Head exam: Present: atraumatic, normocephalic - Eye Eye exam: Present: normal appearance - ENT ENT exam: Present: mucous membranes moist - Neck Neck exam: Present: normal inspection - Respiratory Respiratory exam: Present: normal lung sounds bilaterally. Absent: respiratory distress, wheezes, rales - Cardiovascular Cardiovascular Exam: Present: regular rate, normal rhythm, normal heart sounds. Absent: bradycardia, tachycardia, irregular rhythm, systolic murmur, diastolic murmur, rubs, gallop - GI/Abdominal GI/Abdominal exam: Present: soft, normal bowel sounds. Absent: distended, tenderness, guarding - Rectal Rectal exam: Present: deferred - Extremities Exam Extremities exam: Present: normal inspection - Back Exam Back exam: Present: normal inspection - Neurological Exam Neurological exam: Present: alert, oriented X3 - Psychiatric Psychiatric exam: Present: normal affect, normal mood - Skin Skin exam: Present: warm, dry, intact, normal color. Absent: rash ED Course Vital Signs 05/02/19 05/02/19 05/02/19 00:56 01:06 02:30 Temperature 97.9 F 97.9 F Pulse Rate 125 H 125 H 81 Respiratory 20 20 22 Rate Blood Pressure 165/96 165/96 Blood Pressure 106/56 [Left] O2 Sat by Pulse 100 100 97 Oximetry 05/02/19 05/02/19 02:32 03:22 Temperature Pulse Rate 86 Respiratory 22 Rate Blood Pressure Blood Pressure [Left] O2 Sat by Pulse 97 Oximetry - Reevaluation(s) Reevaluation #1: I discussed all results with patient. Patient is stable for discharge. I discussed plan of care with patient. Patient agrees with plan of care. Patient will be discharged home. Patient given discharge instructions. Patient was understanding of discharge instructions. 05/02/19 02:45 ED Medical Decision Making - Lab Data Result diagrams: 05/02/19 01:14 05/02/19 01:14 - EKG Data -: EKG Interpreted by Me EKG shows normal: sinus rhythm, axis, intervals, QRS complexes, ST-T waves Rate: tachycardia - Radiology Data Radiology results: report reviewed, image reviewed interpreted by me: IMPRESSION: 1. No acute findings. CHEST PA AND LATERAL VIEWS INDICATION: Dysrhythmia. COMPARISON: 04/09/2019 FINDINGS: Support devices: None. Heart: Within normal limits. Lungs/Pleura: No acute pulmonary or pleural findings. IMPRESSION: 1. No acute findings. - Medical Decision Making Patient is a 44-year-old female that presents emergency room with complaints of anxiety, shortness of breath and palpitations. Patient's symptoms appear to be secondary to uncontrolled anxiety. Patient's cardiac workup was negative. Patient's labs unremarkable. Patient's chest x-ray is negative. Patient's EKG shows a sinus tachycardia. - Differential Diagnosis anxiety, shortness of breath, palpitations, racing heartbeat. Critical care attestation.: If time is entered above; I have spent that time in minutes in the direct care of this critically ill patient, excluding procedure time. ED Disposition Clinical Impression: Palpitations, SOB (shortness of breath), Anxiety Disposition: DC-01 TO HOME OR SELFCARE Is pt being admited?: No Does the pt Need Aspirin: No Condition: Stable Instructions: Palpitations (ED), Anxiety (ED) Additional Instructions: Patient to follow-up with primary care in 2-3 days. Patient to follow up with electrical inspector in 2-3 days. Patient to return to ER if condition worsens. Patient to take Tylenol or ibuprofen when necessary for pain. Patient to increase water. Patient to rest. Patient to avoid strenuous exercise until cleared by electrical inspector or primary care. Prescriptions: ALPRAZolam [Xanax TAB] 0.5 mg PO BID PRN #8 tab PRN Reason: Anxiety Referrals: JADA ROSS MD [Staff Physician] - 2-3 Days Time of Disposition: 02:42
[2019-05-02 03:05] LABS: INR 0.94 (0.87-1.13)
[2019-05-02 03:29] VITALS: BP 120/78
== END 2019-05-02 03:30 | disposition home or self-care (01) ==
LOC: ED 00:51
DX: R00.2 Palpitations (principal); R06.02 Shortness of breath; F41.9 Anxiety disorder, unspecified; I10 Essential (primary) hypertension; M19.90 Unspecified osteoarthritis, unspecified site; J45.909 Unspecified asthma, uncomplicated; Z98.51 Tubal ligation status; Z79.899 Other long term (current) drug therapy
CPT/HCPCS: 36415; 71046; 80053; 84484; 85025; 85610; 85730; 93005; 93010

== ENCOUNTER 2019-05-18 07:48 | Emergency (ER) | payer MEDICAID ==
[2019-05-18] MEDS ORDERED: ACETAMINOPHEN 325 MG TAB PO ONE (07:56)
[2019-05-18] MEDS ORDERED: IBUPROFEN 800 MG TAB PO ONE (09:18)
[2019-05-18] MEDS ORDERED: DEXAMETHASONE 4 MG TAB PO ONE (09:19)
[2019-05-18] MEDS ORDERED: IPRATROPIUM/ALBUTEROL SULFATE 3 ML AMPUL.NEB IH ONE (09:19)
--- NOTE | 2019-05-18 09:23 | Emergency Department Report ---
HPI - General Chief Complaint: Upper Respiratory Infection Time Seen by Provider: 05/18/19 09:13 - HPI HPI: 44-year-old -[place] female presents to the emergency department with a 2 day history of a fever, body aches and a mixed dry and productive cough. The patient thinks she may have gotten the flu or a cold and it has exacerbated her asthma. She took some [id number] cough and cold medication and used her home albuterol inhaler. However the inhaler made her feel jittery. She also has a history of hypertension, sleep apnea, anxiety. No recent travel or sick contacts at home. Her primary care physician is a Dr. Miguel at [facility] on [facility]. ED Past Medical Hx - Past Medical History Previous Medical History?: No Hx Hypertension: Yes Hx CVA: No Hx Heart Attack/AMI: No Hx Congestive Heart Failure: No Hx Diabetes: No Hx Deep Vein Thrombosis: No Hx Pulmonary Embolism: No Hx GERD: No Hx Liver Disease: No Hx Renal Disease: No Hx Sickle Cell Disease: No Hx Arthritis: Yes (BACK) Hx Headaches / Migraines: No Hx Seizures: No Hx Kidney Stones: No Hx Psychiatric Treatment: No Hx Asthma: Yes Hx COPD: No Hx Tuberculosis: No Hx Dementia: No Hx HIV: No Additional medical history: Anxiety, Sleep Apnea - Surgical History Past Surgical History?: Yes Hx Coronary Stent: No Hx Open Heart Surgery: No Hx Pacemaker: No Hx Internal Defibrillator: No Hx Cholecystectomy: No Hx Appendectomy: No Hx Breast Surgery: Yes (breast reduction) Additional Surgical History: tubal ligation - Social History Smoking Status: Never Smoker Substance Use Type: None - Medications Home Medications: Home Medications Medication Instructions Recorded Confirmed Last Taken Type atenoloL [Tenormin] 25 mg PO DAILY #30 tab 09/26/16 Unknown Rx Nitrofurantoin Monohyd/M-Cryst 100 mg PO BID 7 Days #14 capsule 06/06/18 Unknown Rx [Macrobid 100 mg Capsule] diphenhydrAMINE [Benadryl CAP] 25 mg PO Q8HR PRN #30 capsule 06/06/18 Unknown Rx Acetaminophen [Acetaminophen TAB] 325 mg PO Q6H PRN #14 tablet 08/30/18 Unknown Rx Albuterol INH(or & Nicu Only) 2 puff IH QID PRN #1 inhalation 08/30/18 Unknown Rx [ProAir HFA Inhaler] Budesonide/Formoterol Fumarate 2 gm IH BID #1 hfa.aer.ad 08/30/18 Unknown Rx [Symbicort 160-4.5 Mcg Inhaler] LORazepam [Ativan] 0.5 mg PO Q12H PRN #20 tablet 08/30/18 Unknown Rx Pantoprazole [Protonix TAB] 40 mg PO QDAY #14 tablet 08/30/18 Unknown Rx methylPREDNISolone [Medrol 4MG 1 dose PO DAILY #1 tab.ds.pk 08/30/18 Unknown Rx DOSEPAK (21 tabs)] Prednisone [predniSONE 10 mg 10 mg PO .TAPER #1 tab.ds.pk 09/04/18 Unknown Rx (6-Day Pack, 21 Tabs)] guaiFENesin/CODEINE [Robitussin AC] 10 ml PO TID PRN #100 ml 09/04/18 Unknown Rx levoFLOXacin [Levaquin TAB] 500 mg PO QDAY #7 tablet 09/04/18 Unknown Rx Naproxen [Naprosyn] 500 mg PO BID #20 tablet 12/24/18 Unknown Rx methOCARBAMOL [Robaxin TAB] 500 mg PO Q8HR PRN #20 tablet 12/24/18 Unknown Rx cephALEXin [Keflex] 500 mg PO QID 7 Days #28 cap 01/18/19 Unknown Rx Pantoprazole [Protonix] 40 mg PO QDAY #30 tablet 01/29/19 Unknown Rx diazePAM TAB [Valium] 5 mg PO TID PRN #12 tablet 01/29/19 Unknown Rx ALPRAZolam [Xanax TAB] 0.25 mg PO TID PRN #6 tab 04/10/19 Unknown Rx ALPRAZolam [Xanax TAB] 0.5 mg PO BID PRN #8 tab 05/02/19 Unknown Rx ALBUTEROL NEB's [Proventil 0.083% 2.5 mg IH Q4HRT PRN #30 nebu 05/18/19 Unknown Rx NEBS] Benzonatate [Tessalon Perles] 100 mg PO Q8HR PRN #20 capsule 05/18/19 Unknown Rx Oseltamivir [Tamiflu] 75 mg PO BID #10 cap 05/18/19 Unknown Rx ED Review of Systems ROS: Stated complaint: FLU Other details as noted in HPI Comment: All other systems reviewed and negative Constitutional: chills, fever Eyes: denies: eye pain, vision change ENT: denies: ear pain, throat pain Respiratory: cough, wheezing Cardiovascular: denies: chest pain, edema Gastrointestinal: denies: abdominal pain, vomiting Genitourinary: denies: dysuria, discharge Musculoskeletal: myalgia. denies: joint swelling Skin: denies: rash, lesions Neurological: headache. denies: weakness, numbness Physical Exam - Physical Exam Vital Signs: Vital Signs 05/18/19 05/18/19 07:52 08:02 Temperature 102.1 F H Pulse Rate 120 H Respiratory 18 16 Rate Blood Pressure 159/76 O2 Sat by Pulse 94 Oximetry Physical Exam: GENERAL: The patient is well-developed well-nourished. HEENT: Normocephalic. Atraumatic. Patient has moist mucous membranes. Oropharynx is clear without tonsillar hypertrophy, erythema or exudates. EYES: Extraocular motions are intact. Pupils equal and reactive to light bilaterally. NECK: Supple. Trachea is midline. CHEST/LUNGS: Mild wheezing throughout the chest. No tachypnea or accessory muscle use. Dry cough heard during examination. There is no respiratory distress noted. HEART/CARDIOVASCULAR: Regular. There is mild tachycardia. There is no murmur. ABDOMEN: Abdomen is soft, nontender. Patient has normal bowel sounds. There is no abdominal distention. SKIN:Skin is warm and dry. . NEURO: The patient is awake, alert, and oriented. The patient is cooperative. The patient has no focal neurologic deficits. Normal speech. Cranial nerves II through XII grossly intact. MUSCULOSKELETAL: There is no tenderness or deformity. There is no evidence of acute injury. ED Course Vital Signs 05/18/19 05/18/19 07:52 08:02 Temperature 102.1 F H Pulse Rate 120 H Respiratory 18 16 Rate Blood Pressure 159/76 O2 Sat by Pulse 94 Oximetry ED Medical Decision Making - Medical Decision Making This patient presents with a 2 day history of fever, wheezing, body aches. There is some mild wheezing and/or bronchospasm but she does not appear in any respiratory distress. She was given a dose of Decadron and some breathing treatments and upon reevaluation the wheezing is improved and the patient feels improved as well. Chest x-ray did not show any pneumonia, pleural effusions, or any other acute process. She was positive for influenza A. Since she is within the 48-hour window, we discussed the side effects of Tamiflu and it has been prescribed for her. The patient was also given a refill of her albuterol nebulizer treatments and Tessalon Perles for cough. She will follow up with her primary care physician and will return to the ER with any worsening of her symptoms or any acute distress. - Differential Diagnosis influenza, pneumonia, viral URI, bronchitis Critical Care Time: No Critical care attestation.: If time is entered above; I have spent that time in minutes in the direct care of this critically ill patient, excluding procedure time. ED Disposition Clinical Impression: Influenza A, Bronchospasm Hypertension Qualifiers: Hypertension type: essential hypertension Qualified Code(s): I10 - Essential (primary) hypertension Disposition: TO HOME OR SELFCARE Is pt being admited?: No Condition: Stable Instructions: Influenza (ED), Hypertension (ED), Bronchospasm (ED) Additional Instructions: Please follow up with your primary care physician in the next few days. Take the medications as prescribed. Return to the emergency Department with any worsening of your symptoms or any acute distress. He can take Tylenol every 4-6 hours and ibuprofen every 6-8 hours, using weight- based dosing on the back of the bottle, as needed for any fever or discomfort. Prescriptions: ALBUTEROL NEB's [Proventil 0.083% NEBS] 2.5 mg IH Q4HRT PRN #30 nebu PRN Reason: Shortness Of Breath Oseltamivir [Tamiflu] 75 mg PO BID #10 cap Benzonatate [Tessalon Perles] 100 mg PO Q8HR PRN #20 capsule PRN Reason: Cough Referrals: DUONG MIGUEL MD [Primary Care Provider] - 2-3 Days Time of Disposition: 10:38
[2019-05-18] MEDS ORDERED: ALBUTEROL 2.5 MG/3 ML NEBU IH ONE (10:00)
[2019-05-18 10:50] VITALS: BP 127/71
--- NOTE | 2019-05-18 11:35 | XRay Report ---
CHEST 2 VIEWS INDICATION / CLINICAL INFORMATION: cough. COMPARISON: 2 views of the chest from 05/02/2019. FINDINGS: SUPPORT DEVICES: None. HEART / MEDIASTINUM: No significant abnormality. LUNGS / PLEURA: No significant pulmonary or pleural abnormality. No pneumothorax. ADDITIONAL FINDINGS: No significant additional findings. IMPRESSION: 1. No acute abnormality of the chest. Signer Name: Skip Daly MD Signed: 05/18/2019 11:30 AM [facility]station [id number]
== END 2019-05-18 10:56 | disposition home or self-care (01) ==
LOC: ED 07:48
DX: J10.1 Influenza due to other identified influenza virus with other respiratory manifestations (principal); J98.01 Acute bronchospasm; I10 Essential (primary) hypertension; F41.9 Anxiety disorder, unspecified; M19.90 Unspecified osteoarthritis, unspecified site; Z98.51 Tubal ligation status; Z79.899 Other long term (current) drug therapy
CPT/HCPCS: 71046; 87400; 94640; 99284; J8540; 94644

== ENCOUNTER 2019-05-20 15:52 | Emergency (ER) | payer MEDICAID ==
--- NOTE | 2019-05-20 19:14 | Event Note ---
ED Screening Note ED Screening Note: states she began to have palpitations today lightheadedness chest tightness no n/v/d no fever no SOB PMHx HTN, anxiety, sleep apnea recently diagnosed with flu no allergies to meds LNMP: end april This initial assessment/diagnostic orders/clinical plan/treatment(s) is/are subject to change based on patients health status, clinical progression and re- assessment by fellow clinical providers in the ED. Further treatment and workup at subsequent clinical providers discretion. Patient/guardian urged not to elope from the ED as their condition may be serious if not clinically assessed and managed. Initial orders include: CP protocol
--- NOTE | 2019-05-20 20:24 | XRay Report ---
CHEST 2 VIEWS INDICATION: CP. COMPARISON: 05/18/2019 FINDINGS: Support devices: None. Heart: Within normal limits. Lungs/Pleura: No acute air space or interstitial disease. No significant pleural effusion. IMPRESSION: No acute findings. Signer Name: Luigi Cisse MD Signed: 05/20/2019 8:20 PM Workstation Name: [id number]
[2019-05-20 21:06] LABS: Basophils % (Auto) 0.6 % (0.0-1.8); Eosinophils # (Auto) 0.1 K/mm3 (0.0-0.4); Eosinophils % (Auto) 2.4 % (0.0-4.3); Hematocrit 36.5 % (30.3-42.9); Hemoglobin 11.6 gm/dl (10.1-14.3); Lymphocytes % (Auto) 48.3 % (13.4-35.0); Mean Corpuscular HGB Conc 32 % (30-34); Mean Corpuscular Volume 71 fl (79-97); Monocytes # (Auto) 0.4 K/mm3 (0.0-0.8); Monocytes % (Auto) 9.6 % (0.0-7.3); Platelet Count 204 K/mm3 (140-440); Red Cell Distribution Width 14.7 % (13.2-15.2)
[2019-05-20 21:29] LABS: Alanine Aminotransferase 31 units/L (7-56); Albumin 4.1 g/dL (3.9-5); BUN/Creatinine Ratio 12; Blood Urea Nitrogen 7 mg/dL (7-17); Hemolysis Index 3
[2019-05-20] MEDS ORDERED: ACETAMINOPHEN 325 MG TAB PO ONE (23:49)
--- NOTE | 2019-05-21 00:26 | Emergency Department Report ---
ED Chest Pain HPI - General Chief Complaint: Chest Pain Stated Complaint: CHEST TIGHT/LIGHT HEADED Time Seen by Provider: 05/20/19 19:12 Source: patient Mode of arrival: Ambulatory Limitations: No Limitations - History of Present Illness Initial Comments: 44-year-old female presents to the emergency department with complaint of a one- day history of some generalized lightheadedness/dizziness and some intermittent left-sided chest tightness that she describes as a hot or burning sensation in the chest. This started about patient was shopping at [employer]. Patient felt as if she could black out but never did. She has not taken anything for her sympt oms prior to presentation today. The patient was just recently seen here 2 days ago and diagnosed with influenza. She also has a past medical history of arthritis, hypertension, anxiety, sleep apnea. No recent travel or sick contacts at home. Severity scale (0 -10): 7 - Related Data Previous Rx's Medication Instructions Recorded Last Taken Type atenoloL [Tenormin] 25 mg PO DAILY #30 tab 09/26/16 Unknown Rx Nitrofurantoin Monohyd/M-Cryst 100 mg PO BID 7 Days #14 capsule 06/06/18 Unknown Rx [Macrobid 100 mg Capsule] diphenhydrAMINE [Benadryl CAP] 25 mg PO Q8HR PRN #30 capsule 06/06/18 Unknown Rx Acetaminophen [Acetaminophen TAB] 325 mg PO Q6H PRN #14 tablet 08/30/18 Unknown Rx Albuterol INH(or & Nicu Only) 2 puff IH QID PRN #1 inhalation 08/30/18 Unknown Rx [ProAir HFA Inhaler] Budesonide/Formoterol Fumarate 2 gm IH BID #1 hfa.aer.ad 08/30/18 Unknown Rx [Symbicort 160-4.5 Mcg Inhaler] LORazepam [Ativan] 0.5 mg PO Q12H PRN #20 tablet 08/30/18 Unknown Rx Pantoprazole [Protonix TAB] 40 mg PO QDAY #14 tablet 08/30/18 Unknown Rx methylPREDNISolone [Medrol 4MG 1 dose PO DAILY #1 tab.ds.pk 08/30/18 Unknown Rx DOSEPAK (21 tabs)] Prednisone [predniSONE 10 mg 10 mg PO .TAPER #1 tab.ds.pk 09/04/18 Unknown Rx (6-Day Pack, 21 Tabs)] guaiFENesin/CODEINE [Robitussin AC] 10 ml PO TID PRN #100 ml 09/04/18 Unknown Rx levoFLOXacin [Levaquin TAB] 500 mg PO QDAY #7 tablet 09/04/18 Unknown Rx Naproxen [Naprosyn] 500 mg PO BID #20 tablet 12/24/18 Unknown Rx methOCARBAMOL [Robaxin TAB] 500 mg PO Q8HR PRN #20 tablet 12/24/18 Unknown Rx cephALEXin [Keflex] 500 mg PO QID 7 Days #28 cap 01/18/19 Unknown Rx Pantoprazole [Protonix] 40 mg PO QDAY #30 tablet 01/29/19 Unknown Rx diazePAM TAB [Valium] 5 mg PO TID PRN #12 tablet 01/29/19 Unknown Rx ALPRAZolam [Xanax TAB] 0.25 mg PO TID PRN #6 tab 04/10/19 Unknown Rx ALPRAZolam [Xanax TAB] 0.5 mg PO BID PRN #8 tab 05/02/19 Unknown Rx ALBUTEROL NEB's [Proventil 0.083% 2.5 mg IH Q4HRT PRN #30 nebu 05/18/19 Unknown Rx NEBS] Benzonatate [Tessalon Perles] 100 mg PO Q8HR PRN #20 capsule 05/18/19 Unknown Rx Oseltamivir [Tamiflu] 75 mg PO BID #10 cap 05/18/19 Unknown Rx Allergies Allergy/AdvReac Type Severity Reaction Status Date / Time No Known Allergies Allergy Verified 06/06/18 15:55 Heart Score - HEART Score History: Slightly suspicious EKG: Normal Age: 45-65 Risk factors: 1-2 risk factors Troponin: < normal limit HEART Score: 2 - Critical Actions Critical Actions: 0-3 pts:0.9-1.7%risk of adverse cardiac event.Candidate for discharge ED Review of Systems ROS: Stated complaint: CHEST TIGHT/LIGHT HEADED Other details as noted in HPI Comment: All other systems reviewed and negative Constitutional: denies: chills, fever Eyes: denies: eye pain, vision change ENT: denies: ear pain, throat pain Respiratory: cough. denies: shortness of breath Cardiovascular: chest pain, palpitations. denies: edema Gastrointestinal: denies: abdominal pain, vomiting Genitourinary: denies: dysuria, discharge Musculoskeletal: denies: back pain Skin: denies: rash, lesions Neurological: denies: weakness, numbness ED Past Medical Hx - Past Medical History Previous Medical History?: Yes Hx Hypertension: Yes Hx CVA: No Hx Heart Attack/AMI: No Hx Congestive Heart Failure: No Hx Diabetes: No Hx Deep Vein Thrombosis: No Hx Pulmonary Embolism: No Hx GERD: No Hx Liver Disease: No Hx Renal Disease: No Hx Sickle Cell Disease: No Hx Arthritis: Yes (BACK) Hx Headaches / Migraines: No Hx Seizures: No Hx Kidney Stones: No Hx Psychiatric Treatment: No Hx Asthma: Yes Hx COPD: No Hx Tuberculosis: No Hx Dementia: No Hx HIV: No Additional medical history: Anxiety, Sleep Apnea - Surgical History Past Surgical History?: Yes Hx Coronary Stent: No Hx Open Heart Surgery: No Hx Pacemaker: No Hx Internal Defibrillator: No Hx Cholecystectomy: No Hx Appendectomy: No Hx Breast Surgery: Yes (breast reduction) Additional Surgical History: tubal ligation - Social History Smoking Status: Never Smoker Substance Use Type: None - Medications Home Medications: Home Medications Medication Instructions Recorded Confirmed Last Taken Type atenoloL [Tenormin] 25 mg PO DAILY #30 tab 09/26/16 Unknown Rx Nitrofurantoin Monohyd/M-Cryst 100 mg PO BID 7 Days #14 capsule 06/06/18 U nknown Rx [Macrobid 100 mg Capsule] diphenhydrAMINE [Benadryl CAP] 25 mg PO Q8HR PRN #30 capsule 06/06/18 Unknown Rx Acetaminophen [Acetaminophen TAB] 325 mg PO Q6H PRN #14 tablet 08/30/18 Unknown Rx Albuterol INH(or & Nicu Only) 2 puff IH QID PRN #1 inhalation 08/30/18 Unknown Rx [ProAir HFA Inhaler] Budesonide/Formoterol Fumarate 2 gm IH BID #1 hfa.aer.ad 08/30/18 Unknown Rx [Symbicort 160-4.5 Mcg Inhaler] LORazepam [Ativan] 0.5 mg PO Q12H PRN #20 tablet 08/30/18 Unknown Rx Pantoprazole [Protonix TAB] 40 mg PO QDAY #14 tablet 08/30/18 Unknown Rx methylPREDNISolone [Medrol 4MG 1 dose PO DAILY #1 tab.ds.pk 08/30/18 Unknown Rx DOSEPAK (21 tabs)] Prednisone [predniSONE 10 mg 10 mg PO .TAPER #1 tab.ds.pk 09/04/18 Unknown Rx (6-Day Pack, 21 Tabs)] guaiFENesin/CODEINE [Robitussin AC] 10 ml PO TID PRN #100 ml 09/04/18 Unknown Rx levoFLOXacin [Levaquin TAB] 500 mg PO QDAY #7 tablet 09/04/18 Unknown Rx Naproxen [Naprosyn] 500 mg PO BID #20 tablet 12/24/18 Unknown Rx methOCARBAMOL [Robaxin TAB] 500 mg PO Q8HR PRN #20 tablet 12/24/18 Unknown Rx cephALEXin [Keflex] 500 mg PO QID 7 Days #28 cap 01/18/19 Unknown Rx Pantoprazole [Protonix] 40 mg PO QDAY #30 tablet 01/29/19 Unknown Rx diazePAM TAB [Valium] 5 mg PO TID PRN #12 tablet 01/29/19 Unknown Rx ALPRAZolam [Xanax TAB] 0.25 mg PO TID PRN #6 tab 04/10/19 Unknown Rx ALPRAZolam [Xanax TAB] 0.5 mg PO BID PRN #8 tab 05/02/19 Unknown Rx ALBUTEROL NEB's [Proventil 0.083% 2.5 mg IH Q4HRT PRN #30 nebu 05/18/19 Unknown Rx NEBS] Benzonatate [Tessalon Perles] 100 mg PO Q8HR PRN #20 capsule 05/18/19 Unknown Rx Oseltamivir [Tamiflu] 75 mg PO BID #10 cap 05/18/19 Unknown Rx ED Physical Exam - General Limitations: No Limitations ED Course Vital Signs 05/20/19 05/20/19 19:12 23:56 Temperature 98.5 F Pulse Rate 96 H Respiratory 20 16 Rate Blood Pressure 138/85 O2 Sat by Pulse 98 Oximetry LUISA score - Luisa Score Age > 65: (0) No Aspirin use within the Past 7 Days: (0) No 3 or more CAD Risk Factors: (0) No 2 or more Angina events in past 24 hrs: (0) No Known CAD with more than 50% Stenosis: (0) No Elevated Cardiac Markers: (0) No ST Deviation Greater than 0.5mm: (0) No LUISA Score: 0 ED Medical Decision Making - Lab Data Result diagrams: 05/20/19 20:24 05/20/19 20:24 - EKG Data -: EKG Interpreted by Me EKG shows normal: sinus rhythm, axis, intervals, QRS complexes, ST-T waves Rate: normal - EKG Data When compared to previous EKG there are: previous EKG unavailable Interpretation: normal EKG Critical care attestation.: If time is entered above; I have spent that time in minutes in the direct care of this critically ill patient, excluding procedure time. ED Disposition Clinical Impression: Atypical chest pain, Lightheaded, Dizziness, Anxiety Disposition: - TO HOME OR SELFCARE Is pt being admited?: No Condition: Stable Instructions: Chest Pain (ED), Lightheadedness (ED), Dizziness (ED) Additional Instructions: Please follow up with a primary care physician in the next few days. Your contact information has been sent over to [facility] heart cardiology and someone from their office should be contacting you shortly for close outpatient follow- up. Please return to the emergency Department with any return or worsening of your symptoms, or with any acute distress. Referrals: DUONG AGUIAR MD [Primary Care Provider] - 2-3 Days [facility] [Provider Group] - 2-3 Days Time of Disposition: 03:05
--- NOTE | 2019-05-21 03:11 | Cat Scan Report ---
CTA CHEST WITH IV CONTRAST INDICATION: Chest pain. Shortness of breath. Dizziness. Elevated d-dimer. TECHNIQUE: Axial CT images were obtained through the chest after injection of 100 cc Omnipaque 350 IV contrast. 3 plane MIP reconstructions were produced. All CT scans at this location are performed using CT dose reduction for ALARA by means of automated exposure control. COMPARISON: 2 views of the chest from 05/20/2019. FINDINGS: PULMONARY ARTERIES: No pulmonary emboli. AORTA AND ARTERIES: No significant abnormality. MEDIASTINUM: The thyroid gland is unremarkable. The trachea and main bronchi are patent and normal in caliber. No mass or lymphadenopathy. Normal heart size without a pericardial effusion. LUNGS: No suspicious consolidation, nodule or mass. No pneumothorax or pleural effusion. ADDITIONAL FINDINGS: None. UPPER ABDOMEN: No significant abnormality. BONES: Degenerative changes are seen throughout the spine without an acute abnormality. IMPRESSION: 1. No CT evidence for pulmonary embolism. 2. No acute abnormality of the chest. Signer Name: Skip Daly MD Signed: 05/21/2019 3:06 AM Workstation Name: [id number]
[2019-05-21 04:21] VITALS: BP 140/90
== END 2019-05-21 03:52 | disposition home or self-care (01) ==
LOC: ED 15:52
DX: R07.89 Other chest pain (principal); R51 Headache; R42 Dizziness and giddiness; F41.9 Anxiety disorder, unspecified; I10 Essential (primary) hypertension; M19.90 Unspecified osteoarthritis, unspecified site; J45.909 Unspecified asthma, uncomplicated; Z98.51 Tubal ligation status; Z98.890 Other specified postprocedural states; Z79.899 Other long term (current) drug therapy
CPT/HCPCS: 36415; 71046; 71275; 80053; 83735; 84100; 84443; 84484; 84703; 85025; 85379; 93005; 93010; 99284; Q9967